=== PATIENT | male | born 1970 | race Hispanic/Latino ===

== ENCOUNTER 2024-06-21 17:43 | Emergency (ER) | payer OTHER ==
--- OUTSIDE RECORDS SUMMARY | 2024-06-21 18:13 | XMS REPORT | Continuity of Care Document ---
Author Name Unknown Address [address] [facility] [address] [place] [address] [facility] [place] Address [address] [facility] 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 Ayesha Seybold - Externa l Allergic rhinitis Allergic rhinitis Disease Active Ayesha Seybold - Externa l Nasal polyps Nasal polyps Disease Active Ayesha Seybold - Externa l Allergies, Adverse Reactions, Alerts Allergy Name Allergy Type Status Severity Reaction(s) Onset Date Inactive Date Treating Clinician Comments Source none (Not Checked) Propensi ty to adverse reaction to drug Active 07-05 00:00: 00 Jonny Helton Mesna - Intraven ous Propensi ty to adverse reaction to drug Active 7- 00:00: 00 Jonny Helton Social History Social Habit Start Date Stop Date Quantity Comments Source Sexual orientation K naya Ayon - External History of Occupation Ayesha Seybold - External Tobacco use and exposure 2024-04-01 00:00:00 2024-04-01 00:00:00 Smokeless tobacco non-user Ayesha Ayon - External Alcoholic beverage intake 2024-04-01 00:00:00 2024-04-01 00:00:00 Current drinker of alcohol (finding) Ayesha Ayon - External History of Social function 2024-04-01 00:00:00 2024-04-01 00:00:00 Ayesha Ayon - External Alcohol Comment 2024-04-01 00:00:00 2024-04-01 00:00:00 occasionally Ayesha Ayon - External Sex 2023-03-15 15:36:21 2023-03-15 15:36:21 Male (finding) Ayesha Ayon - External Sex assigned at 1970 00:00:00 1970 00:00:00 Ayesha Ayon - External Smoking Status Start Date Stop Date Source Never smoked tobacco Ayesha Ayon - External Medications Ordered Medication Name Filled Medication Name Start Date Stop Date Current Medication? Ordering Clinician Indication Dosage Frequency Signature (SIG) Comments Components Source Amoxicillin 875 MG oral Tablet 2023-04 00:00: 00 Yes [id number] 875mg Take 1 tablet (875 mg total) by mouth in the morning and 1 tablet (875 mg total) in the evening. Take with meals. Ayesha Akbar Externa l Ofloxacin 0.3 % otic Solution 2023-04 00:00: 00 Yes [id number] LOCATION: RIGHT EAR. INSTILL FOUR DROPS INTO RIGHT EAR TWICE A DAY Ayesha Ayon - Externa l atorvastati n 10 mg tablet 2023-04 00:00: 00 Yes 1mg Jonny Helton lisinopril 10 mg tablet 2023-04- 00:00: 00 Yes 1mg Jonny Helton metformin 1,000 mg tablet 2023-04 00:00: 00 Yes 1mg Jonny Helton glipizide 5 mg tablet 2023-04 00:00: 00 Yes 1mg Jonny Helton glipizide 5 mg tablet 9-16 00:00: 00 Yes 1mg Jonny Helton atorvastati n 10 mg tablet 0 12-20 00:00: 00 Yes 1mg Jonny Helton lisinopril 10 mg tablet 0 - 00:00: 00 Yes 1mg Jonny Helton glipizide 5 mg tablet 0 12-20 00:00: 00 Yes 1mg Jonny Helton metformin 1,000 mg tablet 0 - 00:00: 00 Yes 1mg Jonny Helton Lisinopril 10 MG oral Tablet 0 -12 00:00: 00 Yes [id number] 10mg QD Take 1 tablet (10 mg total) by mouth daily. Ayesha hoang lisinopril 10 mg tablet 0 10-18 00:00: 00 Yes 1mg Jonny Helton atorvastati n 10 mg tablet 09-27 00:00: 00 Yes 1mg Jonny Helton lisinopril 20 mg tablet 0 - 00:00: 00 Yes 1mg Jonny Helton glipizide 5 mg tablet 0 09-27 00:00: 00 Yes 1mg Jonny Helton metformin 1,000 mg tablet 0 - 00:00: 00 Yes 1mg Jonny Helton glipiZIDE 5 MG oral Tablet 07-05 00:00: 00 Yes [id number] 3 5mg 1 tablet (5 mg total). Ayesha hoang Atorvastati n Calcium 10 MG oral Tablet 0 07-05 00:00: 00 Yes [id number] 3 10mg QD Take 1 tablet (10 mg total) by mouth daily. Ayesha Talbert l glipizide 5 mg tablet 0 07-05 00:00: 00 Yes 1mg Jonny Helton atorvastati n 10 mg tablet 0 07-05 00:00: 00 Yes 1mg Jonny Helton metformin 1,000 mg tablet 0 07-05 00:00: 00 Yes 1mg Jonny Helton Metformin HCl 1000 MG oral Tablet 0 3-07 00:00: 00 Yes [id number] 3 1000mg QD Take 1 tablet (1,000 mg total) by mouth daily (with breakfast) . Ayesha Seyblala hoang TAKE 1 TABLET BY MOUTH DAILY 06-13 00:00: 00 Yes 5 Jonny Helton TAKE 1 TABLET BY MOUTH TWICE DAILY. 06-13 00:00: 00 Yes 1000 Jonny Helton TAKE 1 TABLET BY MOUTH DAILY 06-13 00:00: 00 Yes 20 Jonny Helton Azelastine- Fluticasone 137-50 MCG/ACT nasal Suspension 04-30 00:00: 00 Yes [id number] Ayesha Leijapedrolala Talbert l TAKE 1 TABLET BY MOUTH TWICE DAILY. 10-09 00:00: 00 07-08 00:00 :00 No 1000 Jonny Helton TAKE 1 TABLET DAILY. 10-09 00:00: 00 07-08 00:00 :00 No 5 Jonny Helton TAKE 1 TABLET DAILY. 10-09 00:00: 00 07-08 00:00 :00 No 20 Jonny Helton INSTILL 4 DROPS INTO LEFT EAR TWICE A DAY 09-25 00:00: 00 Yes Jonny Helton TWO SPRAYS EACH NOSTRIL TWICE A DAY 09-25 00:00: 00 Yes Jonny Helton OFLOXACIN 0.3%OTIC RHIANNA 07-21 00:00: 00 Yes Jonny Helton CEFDINIR 300MG 07-10 00:00: 00 Yes Jonny Helton TAKE 1 TABLET DAILY. 07-07 00:00: 00 07-08 00:00 :00 No 5 Jonny Helton TAKE 1 TABLET DAILY. 07-07 00:00: 00 07-08 00:00 :00 No 20 Jonny Helton TAKE 1 TABLET BY MOUTH TWICE DAILY. 07-07 00:00: 00 07-08 00:00 :00 No 1000 Jonny Helton AMOX/K CLAV [id number] 3-06 00:00: 00 Yes Jonny Helton TAKE 1 TABLET BY MOUTH TWICE DAILY. 2021-04 2- 00:00: 00 07-08 00:00 :00 No 1000 Jonny Helton TAKE 1 TABLET DAILY. 2021-04 2-28 00:00: 00 07-08 00:00 :00 No 20 Jonny Helton TAKE 1 TABLET DAILY. 2021-04 2-28 00:00: 00 07-08 00:00 :00 No 5 Jonny Helton Dose Unknown 0 8-08 00:00: 00 Yes Jonny Helton atorvastati n 20 mg tablet 0 7-02 00:00: 00 Yes 1mg Jonny Helton metformin ER 1,000 mg tablet,exte nded release 24hr 0 - 00:00: 00 Yes 1mg Jonny Helton Dose Unknown 0 7- 00:00: 00 Yes Jonny Helton Dose Unknown 0 - 00:00: 00 Yes Jonny Helton Dose Unknown 0 7- 00:00: 00 Yes Jonny Helton Dose Unknown 0 7-02 00:00: 00 Yes Jonny Helton Dose Unknown 0 7- 00:00: 00 Yes Jonny Helton Dose Unknown 0 5-23 00:00: 00 Yes Jonny Helton Dose Unknown 0 5-20 00:00: 00 Yes Jonny Helton metformin 500 mg tablet 0 5-18 00:00: 00 Yes 1mg Jonny Helton atorvastati n 10 mg tablet 0 5-18 00:00: 00 Yes 1mg Jonny Helton Dose Unknown 2021-0 5-18 00:00: 00 Yes Jonny Helton Dose Unknown 2021-0 5-17 00:00: 00 Yes Jonny Helton Dose Unknown 2021-0 5-14 00:00: 00 Yes Jonny Helton Dose Unknown 2021-0 5-14 00:00: 00 Yes Jonny Helton Dose Unknown 2020-0 5-22 00:00: 00 Yes Jonny Helton amoxicillin 500 mg capsule 2020-0 5-22 00:00: 00 Yes 1mg Jonny Helton Immunizations Ordered Immunization Name Filled Immunization Name Date Status Comments Source Moderna COVID-19 Vaccine Moderna COVID-19 Vaccine 2021-11-14 00:00:00 Completed Jonny Helton Moderna COVID-19 Vaccine Moderna COVID-19 Vaccine 2021-11-14 00:00:00 Completed Jonny Helton MMR MMR 2020-07-20 00:00:00 Completed Jonny Helton varicella varicella 2020-07-20 00:00:00 Completed Jonny Helton Tdap Tdap 2020-07-20 00:00:00 Completed Jonny Helton MMR MMR 2020-07-20 00:00:00 Completed Jonny Helton varicella varicella 2020-07-20 00:00:00 Completed Jonny Helton Tdap Tdap 2020-07-20 00:00:00 Completed Jonny Helton Moderna COVID-19 Vaccine Moderna COVID-19 Vaccine 2020-07-04 00:00:00 Completed Jonny Helton Moderna COVID-19 Vaccine Moderna COVID-19 Vaccine 2020-07-04 00:00:00 Completed Jonny Helton Moderna COVID-19 Vaccine Moderna COVID-19 Vaccine 2020-06-06 00:00:00 Completed Jonny Helton Moderna COVID-19 Vaccine Moderna COVID-19 Vaccine 2020-06-06 00:00:00 Completed Jonny Helton Vital Signs Vital Name Observation Time Observation Value Comments S ource Systolic blood pressure 2024-04-01 14:00:00 122 mm[Hg] Ayesha ybo ld - External Diastolic blood pressure 2024-04-01 14:00:00 68 mm[Hg] Ayesha ybo ld - External Heart rate 2024-04-01 14:00:00 80 /min Kel y Sepedroold - External Body temperature 2024-04-01 14:00:00 36.61 Ruth Ayesha Seyblala - External Respiratory rate 2024-04-01 14:00:00 16 /min Ayesha Ayon - External Body height 2024-04-01 14:00:00 180.3 cm Haley sanchez Seyblala - External Body weight 2024-04-01 14:00:00 83.519 kg Haely ey Seybold - External BMI 2024-04-01 14:00:00 25.68 kg/m2 Haley sanchez Seybold - External Oxygen saturation in Arterial blood by Pulse oximetry 2024-04-01 14:00:00 97 /min Ayesha Ramesh ld - External BP Systolic 2024-05-23 08:53:00 124 mm[Hg] Step hen F Danie BP Diastolic 2024-05-23 08:53:00 84 mm[Hg] John phen F Danie Weight Measured 2024-05-23 08:53:00 188.20 pounds Jonny F Danie Height Measured 2024-05-23 08:53:00 69.00 inches Jonny F Danie Body Temperature 2024-05-23 08:53:00 98.00 degrees Jonny F Danie Heart Rate 2024-05-23 08:53:00 76.00 /min Diane en F Danie Respiratory Rate 2024-05-23 08:53:00 18.00 /min Jonny F Danie BP Systolic 2024-03-21 08:46:00 139 mm[Hg] Step hen F Danie BP Diastolic 2024-03-21 08:46:00 82 mm[Hg] John phen F Danie Weight Measured 2024-03-21 08:46:00 183.20 pounds Jonny F Danie Height Measured 2024-03-21 08:46:00 69.00 inches Jonny F Danie Body Temperature 2024-03-21 08:46:00 98.30 degrees Jonny F Danie Heart Rate 2024-03-21 08:46:00 71.00 /min Diane en F Danie Respiratory Rate 2024-03-21 08:46:00 16.00 /min Jonny F Danie BP Systolic 2023-12-21 08:41:00 125 mm[Hg] Step hen F Danie BP Diastolic 2023-12-21 08:41:00 87 mm[Hg] John phen F Danie Weight Measured 2023-12-21 08:41:00 184.60 pounds Jonny F Danie Height Measured 2023-12-21 08:41:00 69.00 inches Jonny F Danie Body Temperature 2023-12-21 08:41:00 97.40 degrees Jonny F Danie Heart Rate 2023-12-21 08:41:00 73.00 /min Diane en F Danie Respiratory Rate 2023-12-21 08:41:00 16.00 /min Jonny F Danie BP Systolic 2023-10-19 09:40:00 143 mm[Hg] Step hen F Danie BP Diastolic 2023-10-19 09:40:00 83 mm[Hg] John phen F Danie Weight Measured 2023-10-19 09:40:00 182.40 pounds Jonny F Danie Height Measured 2023-10-19 09:40:00 69.00 inches Jonny F Danie Body Temperature 2023-10-19 09:40:00 97.90 degrees Jonny F Danie Heart Rate 2023-10-19 09:40:00 74.00 /min Diane en F Danie Respiratory Rate 2023-10-19 09:40:00 Jonny F Danie BP Systolic 2023-09-28 08:11:00 156 mm[Hg] Step hen F Danie BP Diastolic 2023-09-28 08:11:00 94 mm[Hg] John phen F Danie Weight Measured 2023-09-28 08:11:00 191.20 pounds Jonny F Danie Height Measured 2023-09-28 08:11:00 69.00 inches Jonny F Danie Body Temperature 2023-09-28 08:11:00 98.20 degrees Jonny F Danie Heart Rate 2023-09-28 08:11:00 70.00 /min Diane en F Danie Respiratory Rate 2023-09-28 08:11:00 18.00 /min Jonny F Danie BP Systolic 2023-07-06 08:20:00 147 mm[Hg] Step hen F Danie BP Diastolic 2023-07-06 08:20:00 92 mm[Hg] John phen F Danie Weight Measured 2023-07-06 08:20:00 188.80 pounds Jonny F Danie Height Measured 2023-07-06 08:20:00 69.00 inches Jonny F Danie Body Temperature 2023-07-06 08:20:00 98.20 degrees Jonny F Danie Heart Rate 2023-07-06 08:20:00 71.00 /min Diane en F Danie Respiratory Rate 2023-07-06 08:20:00 Jonny F Danie BP Systolic 2023-04-20 08:15:00 135 mm[Hg] Step hen F Danie BP Diastolic 2023-04-20 08:15:00 86 mm[Hg] John phen F Danie Weight Measured 2023-04-20 08:15:00 197.00 pounds Jonny F Danie Height Measured 2023-04-20 08:15:00 69.00 inches Jonny F Danie Body Temperature 2023-04-20 08:15:00 98.30 degrees Jonny F Danie Heart Rate 2023-04-20 08:15:00 83.00 /min Diane en F Danie Respiratory Rate 2023-04-20 08:15:00 18.00 /min Jonny F Danie BP Systolic 2023-03-16 08:13:00 136 mm[Hg] Step hen F Danie BP Diastolic 2023-03-16 08:13:00 89 mm[Hg] John phen F Danie Weight Measured 2023-03-16 08:13:00 191.60 pounds Jonny F Danie Height Measured 2023-03-16 08:13:00 69.00 inches Jonny F Danie Body Temperature 2023-03-16 08:13:00 98.20 degrees Jonny F Danie Heart Rate 2023-03-16 08:13:00 74.00 /min Diane en F Danie Respiratory Rate 2023-03-16 08:13:00 Jonny F Danie BP Systolic 2022-10-06 08:04:00 148 mm[Hg] Step hen F Danie BP Diastolic 2022-10-06 08:04:00 80 mm[Hg] John phen F Danie Weight Measured 2022-10-06 08:04:00 189.40 pounds Jonny F Danie Height Measured 2022-10-06 08:04:00 69.00 inches Jonny F Danie Body Temperature 2022-10-06 08:04:00 98.00 degrees Jonny F Danie Heart Rate 2022-10-06 08:04:00 73.00 /min Diane en F Danie Respiratory Rate 2022-10-06 08:04:00 Jonny F Danie BP Systolic 2022-07-07 11:17:00 132 mm[Hg] Step hen F Danie BP Diastolic 2022-07-07 11:17:00 83 mm[Hg] John phen F Danie Weight Measured 2022-07-07 11:17:00 187.40 pounds Jonny F Danie Height Measured 2022-07-07 11:17:00 69.00 inches Jonny F Dnaie Body Temperature 2022-07-07 11:17:00 98.70 degrees Jonny F Danie Heart Rate 2022-07-07 11:17:00 80.00 /min Diane en F Danie Respiratory Rate 2022-07-07 11:17:00 Jonny F Danie BP Systolic 2022-04-05 14:28:00 134 mm[Hg] Step hen F Danie BP Diastolic 2022-04-05 14:28:00 93 mm[Hg] John phen F Danie Weight Measured 2022-04-05 14:28:00 181.40 pounds Jonny F Danie Height Measured 2022-04-05 14:28:00 69.00 inches Jonny F Danie Body Temperature 2022-04-05 14:28:00 98.30 degrees Jonny F Danie Heart Rate 2022-04-05 14:28:00 84.00 /min Diane en F Danie Respiratory Rate 2022-04-05 14:28:00 18.00 /min Jonny F Danie BP Systolic 2022-01-09 10:22:00 142 mm[Hg] Step hen F Danie BP Diastolic 2022-01-09 10:22:00 89 mm[Hg] John phen F Danie Weight Measured 2022-01-09 10:22:00 179.40 pounds Jonny F Danie Height Measured 2022-01-09 10:22:00 69.00 inches Jonny F Danie Body Temperature 2022-01-09 10:22:00 98.60 degrees Jonny F Danie Heart Rate 2022-01-09 10:22:00 82.00 /min Diane en F Danie Respiratory Rate 2022-01-09 10:22:00 18.00 /min Jonny F Danie BP Systolic 2021-10-08 09:43:00 121 mm[Hg] Step hen F Danie BP Diastolic 2021-10-08 09:43:00 85 mm[Hg] John phen F Danie Weight Measured 2021-10-08 09:43:00 179.20 pounds Jonny F Danie Height Measured 2021-10-08 09:43:00 69.00 inches Jonny F Danie Body Temperature 2021-10-08 09:43:00 98.40 degrees Jonny F Danie Heart Rate 2021-10-08 09:43:00 78.00 /min Diane en F Danie Respiratory Rate 2021-10-08 09:43:00 Jonny F Danie BP Systolic 2021-08-20 09:11:00 121 mm[Hg] Step hen F Danie BP Diastolic 2021-08-20 09:11:00 82 mm[Hg] John Helton Weight Measured 2021-08-20 09:11:00 181.20 pounds Jonny Helton Height Measured 2021-08-20 09:11:00 69.00 inches Jonny Helton Body Temperature 2021-08-20 09:11:00 98.40 degrees Jonny Helton Heart Rate 2021-08-20 09:11:00 84.00 /min Diane Helton Respiratory Rate 2021-08-20 09:11:00 20.00 /min Jonny Helton Encounters Start Date/Time End Date/Time Encounter Type Admission Type Attending [facility] Care Department Encounter ID Source 2024-07-18 10:45:00 2024-07-18 10:45:00 Outpatient MAI LERMA [id number] Ayesha Ayon 2024-05-23 00:00:00 2024-05-23 00:00:00 Outpatient Visit [facility] [id number] Jonny Helton 2024-05-09 00:00:00 2024-05-09 00:00:00 Outpatient AYESHA MERAZ [id number] Ayesha lala 2024-05-02 00:00:00 2024-05-02 00:00:00 Outpatient AYESHA MERAZ [id number] Ayesha lala 2024-04-01 08:00:00 2024-04-01 08:00:00 Outpatient [facility] LER[facility] [id number] [facility]-01 00:00:00 2024-04-01 00:00:00 Outpatient AYESHA MERAZ [id number] Ayesha Gabo 2024-03-21 08:48:34 2024-03-21 08:48:34 Outpatient SFA SFA [id number] Jonny Helton 2024-03-21 00:00:00 2024-03-21 00:00:00 Outpatient Visit S[facility] [id number] Jonny Helton 2024-01-04 13:57:58 2024-01-04 13:57:58 Outpatient SFA SFA [id number] Jonny Helton 2023-12-21 08:31:18 2023-12-21 08:31:18 Outpatient SFA SFA [id number] Jonny Helton 2023-12-21 00:00:00 2023-12-21 00:00:00 Outpatient Visit SFA [id number] Jonny Helton 2023-10-19 09:30:29 2023-10-19 09:30:29 Outpatient SFA SFA [id number] Jonny Helton 2023-10-19 00:00:00 2023-10-19 00:00:00 Outpatient Visit SFA [id number] Jonny Helton 2023-09-28 08:09:02 2023-09-28 08:09:02 Outpatient SFA SFA [id number] Jonny Helton 2023-09-28 00:00:00 2023-09-28 00:00:00 Outpatient Visit SFA [id number] Jonny Helton 2023-07-06 08:15:18 2023-07-06 08:15:18 Outpatient SFA SFA [id number] Jonny Helton 2023-04-20 07:57:41 2023-04-20 07:57:41 Outpatient SFA SFA [id number] Jonny Helton 2023-03-16 07:59:48 2023-03-16 07:59:48 Outpatient SFA SFA [id number] Jonny Helton 2022-10-12 08:00:04 2022-10-12 08:00:04 Outpatient SFA SFA [id number] Jonny Helton 2022-10-06 07:50:24 2022-10-06 07:50:24 Outpatient SFA SFA [id number] Jonny Helton 2022-07-07 11:05:30 2022-07-07 11:05:30 Outpatient [facility] [id number] Jonny Helton 2022-04-05 14:22:37 2022-04-05 14:22:37 Outpatient [facility] [id number] Jonny Helton Results Test Description Test Time Test Comments Results Result Co mments Source HEMOGLOBIN [id number] 00:00:00* Test Item Value Reference Range Interpretation Comme merry HEMOGLOBIN A1c (test code = 93677) 7.9 % Jonny HeltonHEMOGLOBIN [id number] 05:11:24* Test Item Value Reference Range Interpretation Comme merry HEMOGLOBIN A1c (test code = 53710) 7.1 % 4.2-5.6 H [employer] GUIDELINES FOR HGB A1C: PREDIABETES/INCREASED RISK . . . . . . . 5.7-6.4% DIAGNOSIS OF DIABETES . . . . . . . . . >=6.5% WITH CONFIRMATION OR APPROPRIATE SYMPTOMS NOTE: ASSAY MAY BE AFFECTED BY HEMOGLOBINOPATHIES (SICKLE CELL ANEMIA, S-C DISEASE, OTHERS) OR ARTIFICIALLY LOWERED BY DECREASED RED CELL SURVIVAL (HEMOLYTIC ANEMIAS, BLOOD LOSS, ETC.). CONSIDER ALTERNATE TESTING OR LABORATORY CONSULTATION. UNLESS OTHERWISE INDICATED, ALL TESTING PERFORMED AT [facility] [address] [place] [address] SOLAR THERMAL INSTALLER: NAIDA VELARDE M.D. CLIA NUMBER [id number] [facility] [place]. [id number] HEMOGLOBIN [id number] 00:00:00* Test Item Value Reference Range Interpretation Comme merry HEMOGLOBIN A1c (test code = 55223) 7.1 % Jonny HeltonHEMOGLOBIN [id number] 00:00:00* Test Item Value Reference Range Interpretation Comme merry HEMOGLOBIN A1c (test code = 54742) 7.1 % Jonny Rust AustinOccult Blood, Fecal, [id number] 00:00:00* Test Item Value Reference Range Interpretation Comme nts Occult Blood, Fecal, [place] (andrea t code = 89815-8) Negative Jonny Rust AustinOccult Blood, Fecal, [id number] 00:00:00* Test Item Value Reference Range Interpretation Comme nts Occult Blood, Fecal, IA (andrea t code = 82451-3) Negative Jonny F AustinHEMOGLOBIN [id number] 04:02:19* Test Item Value Reference Range Interpretation Comme [facility] HEMOGLOBIN A1c (test code = 69289) 7.5 % 4.2-5.6 H [employer] GUIDELINES FOR HGB A1C: PREDIABETES/INCREASED RISK . . . . . . . 5.7-6.4% DIAGNOSIS OF DIABETES . . . . . . . . . >=6.5% WITH CONFIRMATION OR APPROPRIATE SYMPTOMS NOTE: ASSAY MAY BE AFFECTED BY HEMOGLOBINOPATHIES (SICKLE CELL ANEMIA, S-C DISEASE, OTHERS) OR ARTIFICIALLY LOWERED BY DECREASED RED CELL SURVIVAL (HEMOLYTIC ANEMIAS, BLOOD LOSS, ETC.). CONSIDER ALTERNATE TESTING OR LABORATORY CONSULTATION. LIPID [id number] 03:10:12* Test Item Value Reference Range Interpretation Comme nts CHOLESTEROL (test code = 2210) 168 MG/DL <200 TRIGLYCERIDES (test code = 2232) 83 MG/DL <150 HDL CHOLESTEROL (test code = 2220) 76 MG/DL >39 CALC LDL CHOL (test code = 2237) 75 MG/DL <100 NOTE: CALCULATED LDL IS BASED ON MARC-LARSON METHOD WHICHINCLUDES ADJUSTABLE TRIGLYCERIDE:VLDL CHOLESTEROL RATIO.THIS FACTOR VARIES BY MEASURED TRIGLYCERIDE AND NON-HDLCHOLESTEROL CONCENTRATIONS WITH INCREASED CALCULATED LDL SEENIN HIGHER TRIGLYCERIDE OR LOWER NON-HDL SPECIMENS. FOR MOREINFORMATION, SEE CLIENT ANNOUNCEMENT AT [email or web address] RISK RATIO LDL/HDL (test code = 2238) 0.99 RATIO <3.55 COMPREHENSIVE METABOLIC [id number] 03:10:12* Test Item Value Reference Range Interpretation Comme nts GLUCOSE (test code = 2217) 171 MG/DL 70-99 H BUN (test code = 2208) 10 MG/DL 6-20 CREATININE (test code = 2214) 0.84 MG/DL 0.80-1.40 eGFR (2020 CKD-EPI) (test code = 76864) 104 ML/MIN/1.73 >60 CALC BUN/CREAT (test code = 2235) 12 RATIO 6-28 SODIUM (test code = 2231) 138 MEQ/L 133-146 POTASSIUM (test code = 2228) 4.7 MEQ/L 3.5-5.4 CHLORIDE (test code = 2215) 102 MEQ/L 95-107 CARBON DIOXIDE (test code = 2206) 23 MEQ/L 19-31 CALCIUM (test code = 2209) 9.4 MG/DL 8.5-10.5 PROTEIN, TOTAL (test code = 2229) 7.2 G/DL 6.1-8.3 ALBUMIN (test code = 2201) 4.7 G/DL 3.5-5.2 CALC GLOBULIN (test code = 2240) 2.5 G/DL 1.9-3.7 CALC A/G RATIO (test code = 2234) 1.9 RATIO 1.0-2.6 BILIRUBIN, TOTAL (test code = 2207) 1.0 MG/DL <=1.2 ALKALINE PHOSPHATASE (test code = 2204) 52 U/L 40-121 AST (test code = 2218) 36 U/L 9-50 ALT (test code = 2219) 78 U/L 5-50 H UNLESS OTHERWISE INDICATED, ALL TESTING PERFORMED AT [facility] [address] [place] [id number] SOLAR THERMAL INSTALLER: NAIDA VELARDE M.D. [place] NUMBER [id number] [facility] [place]. [id number] LIPID [id number] 00:00:00* Test Item Value Reference Range Interpretation Comme nts CHOLESTEROL (test code = 2210) 168 MG/DL TRIGLYCERIDES (test code = 2232) 83 MG/DL HDL CHOLESTEROL (test code = 2220) 76 MG/DL CALC LDL CHOL (test code = 2237) 75 MG/DL RISK RATIO LDL/HDL (test cod e = 2238) 0.99 RATIO Jonny Yocasta DanieHEMOGLOBIN [id number] 00:00:00* Test Item Value Reference Range Interpretation Comme nts HEMOGLOBIN A1c (test code = 52761) 7.5 % Jonny [place]asta [place] [id number] 00:00:00* Test Item Value Reference Range Interpretation Comme nts GLUCOSE (test code = 2217) 171 MG/DL BUN (test code = 2208) 10 MG/DL CREATININE (test code = 2214) 0.84 MG/DL eGFR (2020 CKD-EPI) (test code = 59749) 104 ML/MIN/1.73 CALC BUN/CREAT (test code = 2235) 12 RATIO SODIUM (test code = 2231) 138 MEQ/L POTASSIUM (test code = 2228) 4.7 MEQ/L CHLORIDE (test code = 2215) 102 MEQ/L CARBON DIOXIDE (test code = 2206) 23 MEQ/L CALCIUM (test code = 2209) 9.4 MG/DL PROTEIN, TOTAL (test code = 2229) 7.2 G/DL ALBUMIN (test code = 2201) 4.7 G/DL CALC GLOBULIN (test code = 2240) 2.5 G/DL CALC A/G RATIO (test code = 2234) 1.9 RATIO BILIRUBIN, TOTAL (test code = 2207) 1.0 MG/DL ALKALINE PHOSPHATASE (test code = 2204) 52 U/L AST (test code = 2218) 36 U/L ALT (test code = 2219) 78 U/L Jonny HeltonLIPID [id number] 00:00:00* Test Item Value Reference Range Interpretation Comme nts CHOLESTEROL (test code = 2210) 168 MG/DL TRIGLYCERIDES (test code = 2232) 83 MG/DL HDL CHOLESTEROL (test code = 2220) 76 MG/DL CALC LDL CHOL (test code = 2237) 75 MG/DL RISK RATIO LDL/HDL (test cod e = 2238) 0.99 RATIO Jonny HeltonHEMOGLOBIN [id number] 00:00:00* Test Item Value Reference Range Interpretation Comme nts HEMOGLOBIN A1c (test code = 58207) 7.5 % Jonny HeltonCOMPREHENSIVE METABOLIC [id number] 00:00:00* Test Item Value Reference Range Interpretation Comme nts GLUCOSE (test code = 2217) 171 MG/DL BUN (test code = 2208) 10 MG/DL CREATININE (test code = 2214) 0.84 MG/DL eGFR (2020 CKD-EPI) (test code = 32737) 104 ML/MIN/1.73 CALC BUN/CREAT (test code = 2235) 12 RATIO SODIUM (test code = 2231) 138 MEQ/L POTASSIUM (test code = 2228) 4.7 MEQ/L CHLORIDE (test code = 2215) 102 MEQ/L CARBON DIOXIDE (test code = 2206) 23 MEQ/L CALCIUM (test code = 2209) 9.4 MG/DL PROTEIN, TOTAL (test code = 2229) 7.2 G/DL ALBUMIN (test code = 2201) 4.7 G/DL CALC GLOBULIN (test code = 2240) 2.5 G/DL CALC A/G RATIO (test code = 2233) 1.9 RATIO BILIRUBIN, TOTAL (test code = 2207) 1.0 MG/DL ALKALINE PHOSPHATASE (test code = 2204) 52 U/L AST (test code = 2218) 36 U/L ALT (test code = 2219) 78 U/L Jonny HeltonALBUMIN/CREATININE RATIO, URINE, [id number] 04:16:36* Test Item Value Reference Range Interpretation Comme nts CREATININE, URINE, CONC. (test code = 2072) 93.0 MG/DL NOT ESTAB ALBUMIN, URINE, RANDOM (test code = 20349) 4.2 MG/DL NOT ESTAB CALC ALBUMIN/CREAT, RND (test code = 24079) 45 MG/G <30 H Note: Albumin/Cr eatinine ratio reference interval reflects ADA and NKF guidelines. UNLESS OTHERWISE INDICATED, ALL TESTING PERFORMED AT [facility] [address] [place] [address] SOLAR THERMAL INSTALLER: NAIDA VELARDE M.D. CLIA NUMBER [id number] [facility] [place] [place]. [id number] LIPID [id number] 03:31:47* Test Item Value Reference Range Interpretation Comme nts CHOLESTEROL (test code = 2210) 160 MG/DL <200 TRIGLYCERIDES (test code = 2232) 68 MG/DL <150 HDL CHOLESTEROL (test code = 2220) 68 MG/DL >39 CALC LDL CHOL (test code = 7) 78 MG/DL <100 NOTE: CALCULATED LDL IS BASED ON MARC-LARSON METHOD WHICHINCLUDES ADJUSTABLE TRIGLYCERIDE:VLDL CHOLESTEROL RATIO.THIS FACTOR VARIES BY MEASURED TRIGLYCERIDE AND NON-HDLCHOLESTEROL CONCENTRATIONS WITH INCREASED CALCULATED LDL SEENIN HIGHER TRIGLYCERIDE OR LOWER NON-HDL SPECIMENS. FOR MOREINFORMATION, SEE CLIENT ANNOUNCEMENT AT [email or web address] RISK RATIO LDL/HDL (test code = 2238) 1.15 RATIO <3.55 COMPREHENSIVE METABOLIC [id number] 03:31:47* Test Item Value Reference Range Interpretation Comme nts GLUCOSE (test code = 2216) 188 MG/DL 70-99 H BUN (test code = 2207) 11 MG/DL 6-20 CREATININE (test code = 2213) 0.86 MG/DL 0.80-1.40 eGFR (2020 CKD-EPI) (test code = 69606) 104 ML/MIN/1.73 >60 CALC BUN/CREAT (test code = 2234) 13 RATIO 6-28 SODIUM (test code = 2230) 139 MEQ/L 133-146 POTASSIUM (test code = 2227) 4.4 MEQ/L 3.5-5.4 CHLORIDE (test code = 2214) 100 MEQ/L 95-107 CARBON DIOXIDE (test code = 2205) 27 MEQ/L 19-31 CALCIUM (test code = 2208) 9.8 MG/DL 8.5-10.5 PROTEIN, TOTAL (test code = 2228) 7.2 G/DL 6.1-8.3 ALBUMIN (test code = 2200) 4.8 G/DL 3.5-5.2 CALC GLOBULIN (test code = 2239) 2.4 G/DL 1.9-3.7 CALC A/G RATIO (test code = 2233) 2.0 RATIO 1.0-2.6 BILIRUBIN, TOTAL (test code = 2206) 0.9 MG/DL <=1.2 ALKALINE PHOSPHATASE (test code = 2203) 68 U/L 40-121 AST (test code = 2217) 34 U/L 9-50 ALT (test code = 2218) 50 U/L 5-50 HEMOGLOBIN [id number] 02:28:30* Test Item Value Reference Range Interpretation Comme nts HEMOGLOBIN A1c (test code = 26533) 6.9 % 4.2-5.6 H [employer] GUIDELINES FOR HGB A1C: PREDIABETES/INCREASED RISK . . . . . . . 5.7-6.4% DIAGNOSIS OF DIABETES . . . . . . . . . >=6.5% WITH CONFIRMATION OR APPROPRIATE SYMPTOMS NOTE: ASSAY MAY BE AFFECTED BY HEMOGLOBINOPATHIES (SICKLE CELL ANEMIA, S-C DISEASE, OTHERS) OR ARTIFICIALLY LOWERED BY DECREASED RED CELL SURVIVAL (HEMOLYTIC ANEMIAS, BLOOD LOSS, ETC.). CONSIDER ALTERNATE TESTING OR LABORATORY CONSULTATION. HEMOGLOBIN [id number] 00:00:00* Test Item Value Reference Range Interpretation Comme nts HEMOGLOBIN A1c (test code = 22548) 6.9 % Jonny Yocasta AustinLIPID [id number] 00:00:00* Test Item Value Reference Range Interpretation Comme nts CHOLESTEROL (test code = 2210) 160 MG/DL TRIGLYCERIDES (test code = 2232) 68 MG/DL HDL CHOLESTEROL (test code = 2220) 68 MG/DL CALC LDL CHOL (test code = 2237) 78 MG/DL RISK RATIO LDL/HDL (test cod e = 2238) 1.15 RATIO Jonny HeltonCOMPREHENSIVE METABOLIC [id number] 00:00:00* Test Item Value Reference Range Interpretation Comme nts GLUCOSE (test code = 2217) 188 MG/DL BUN (test code = 2208) 11 MG/DL CREATININE (test code = 2214) 0.86 MG/DL eGFR (2020 CKD-EPI) (test code = 97586) 104 ML/MIN/1.73 CALC BUN/CREAT (test code = 2235) 13 RATIO SODIUM (test code = 2231) 139 MEQ/L POTASSIUM (test code = 2228) 4.4 MEQ/L CHLORIDE (test code = 2215) 100 MEQ/L CARBON DIOXIDE (test code = 2206) 27 MEQ/L CALCIUM (test code = 2209) 9.8 MG/DL PROTEIN, TOTAL (test code = 2229) 7.2 G/DL ALBUMIN (test code = 2201) 4.8 G/DL CALC GLOBULIN (test code = 2240) 2.4 G/DL CALC A/G RATIO (test code = 2234) 2.0 RATIO BILIRUBIN, TOTAL (test code = 2207) 0.9 MG/DL ALKALINE PHOSPHATASE (test code = 2204) 68 U/L AST (test code = 2218) 34 U/L ALT (test code = 2219) 50 U/L Jonny HeltonALBUMIN/CREATININE RATIO, RANDOM [id number] 00:00:00* Test Item Value Reference Range Interpretation Comme nts CREATININE, URINE, CONC. (te st code = 2072) 93.0 MG/DL ALBUMIN, URINE, RANDOM (test code = 00695) 4.2 MG/DL CALC ALBUMIN/CREAT, RND (andrea t code = 61289) 45 MG/G Jonny HeltonHEMOGLOBIN [id number] 00:00:00* Test Item Value Reference Range Interpretation Comme merry HEMOGLOBIN A1c (test code = 33009) 6.9 % Jonny F AustinLIPID [id number] 00:00:00* Test Item Value Reference Range Interpretation Comme nts CHOLESTEROL (test code = 2210) 160 MG/DL TRIGLYCERIDES (test code = 2232) 68 MG/DL HDL CHOLESTEROL (test code = 2220) 68 MG/DL CALC LDL CHOL (test code = 2237) 78 MG/DL RISK RATIO LDL/HDL (test cod e = 2238) 1.15 RATIO Jonny HeltonCOMPREHENSIVE METABOLIC [id number] 00:00:00* Test Item Value Reference Range Interpretation Comme nts GLUCOSE (test code = 2217) 188 MG/DL BUN (test code = 2208) 11 MG/DL CREATININE (test code = 2214) 0.86 MG/DL eGFR (2020 CKD-EPI) (test code = 70692) 104 ML/MIN/1.73 CALC BUN/CREAT (test code = 2235) 13 RATIO SODIUM (test code = 2231) 139 MEQ/L POTASSIUM (test code = 2228) 4.4 MEQ/L CHLORIDE (test code = 2215) 100 MEQ/L CARBON DIOXIDE (test code = 2206) 27 MEQ/L CALCIUM (test code = 2209) 9.8 MG/DL PROTEIN, TOTAL (test code = 2229) 7.2 G/DL ALBUMIN (test code = 2201) 4.8 G/DL CALC GLOBULIN (test code = 2240) 2.4 G/DL CALC A/G RATIO (test code = 2234) 2.0 RATIO BILIRUBIN, TOTAL (test code = 2207) 0.9 MG/DL ALKALINE PHOSPHATASE (test code = 2204) 68 U/L AST (test code = 2218) 34 U/L ALT (test code = 2219) 50 U/L Jonny HeltonALBUMIN/CREATININE RATIO, RANDOM [id number] 00:00:00* Test Item Value Reference Range Interpretation Comme nts CREATININE, URINE, CONC. (te st code = 2072) 93.0 MG/DL ALBUMIN, URINE, RANDOM (test code = 03222) 4.2 MG/DL CALC ALBUMIN/CREAT, RND (andrea t code = 17644) 45 MG/G Jonny HeltonHEMOGLOBIN [id number] 00:00:00* Test Item Value Reference Range Interpretation Comme nts HEMOGLOBIN A1c (test code = 31726) 6.9 % Jonny HeltonLIPID [id number] 00:00:00* Test Item Value Reference Range Interpretation Comme nts CHOLESTEROL (test code = 2210) 160 MG/DL TRIGLYCERIDES (test code = 2232) 68 MG/DL HDL CHOLESTEROL (test code = 2220) 68 MG/DL CALC LDL CHOL (test code = 2237) 78 MG/DL RISK RATIO LDL/HDL (test cod e = 2238) 1.15 RATIO Jonny HeltonCOMPREHENSIVE METABOLIC [id number] 00:00:00* Test Item Value Reference Range Interpretation Comme nts GLUCOSE (test code = 2217) 188 MG/DL BUN (test code = 2208) 11 MG/DL CREATININE (test code = 2214) 0.86 MG/DL eGFR (2020 CKD-EPI) (test code = 73680) 104 ML/MIN/1.73 CALC BUN/CREAT (test code = 2235) 13 RATIO SODIUM (test code = 2231) 139 MEQ/L POTASSIUM (test code = 2228) 4.4 MEQ/L CHLORIDE (test code = 2215) 100 MEQ/L CARBON DIOXIDE (test code = 2206) 27 MEQ/L CALCIUM (test code = 2209) 9.8 MG/DL PROTEIN, TOTAL (test code = 2229) 7.2 G/DL ALBUMIN (test code = 2201) 4.8 G/DL CALC GLOBULIN (test code = 2240) 2.4 G/DL CALC A/G RATIO (test code = 2234) 2.0 RATIO BILIRUBIN, TOTAL (test code = 2207) 0.9 MG/DL ALKALINE PHOSPHATASE (test code = 2204) 68 U/L AST (test code = 2218) 34 U/L ALT (test code = 2219) 50 U/L Jonny Rust AustinALBUMIN/CREATININE RATIO, RANDOM [id number] 00:00:00* Test Item Value Reference Range Interpretation Comme nts CREATININE, URINE, CONC. (te st code = 2072) 93.0 MG/DL ALBUMIN, URINE, RANDOM (test code = 67617) 4.2 MG/DL CALC ALBUMIN/CREAT, RND (andrea t code = 37152) 45 MG/G Jonny HeltonHEMOGLOBIN [id number] 00:00:00* Test Item Value Reference Range Interpretation Comme merry HEMOGLOBIN A1c (test code = 51522) 6.9 % Jonny HeltonLIPID [id number] 00:00:00* Test Item Value Reference Range Interpretation Comme nts CHOLESTEROL (test code = 2210) 160 MG/DL TRIGLYCERIDES (test code = 2232) 68 MG/DL HDL CHOLESTEROL (test code = 2220) 68 MG/DL CALC LDL CHOL (test code = 2237) 78 MG/DL RISK RATIO LDL/HDL (test cod e = 2238) 1.15 RATIO Jonny HeltonCOMPREHENSIVE METABOLIC [id number] 00:00:00* Test Item Value Reference Range Interpretation Comme nts GLUCOSE (test code = 2217) 188 MG/DL BUN (test code = 2208) 11 MG/DL CREATININE (test code = 2214) 0.86 MG/DL eGFR (2020 CKD-EPI) (test code = 18788) 104 ML/MIN/1.73 CALC BUN/CREAT (test code = 2235) 13 RATIO SODIUM (test code = 2231) 139 MEQ/L POTASSIUM (test code = 2228) 4.4 MEQ/L CHLORIDE (test code = 2215) 100 MEQ/L CARBON DIOXIDE (test code = 2206) 27 MEQ/L CALCIUM (test code = 2209) 9.8 MG/DL PROTEIN, TOTAL (test code = 2229) 7.2 G/DL ALBUMIN (test code = 2201) 4.8 G/DL CALC GLOBULIN (test code = 2240) 2.4 G/DL CALC A/G RATIO (test code = 2234) 2.0 RATIO BILIRUBIN, TOTAL (test code = 2207) 0.9 MG/DL ALKALINE PHOSPHATASE (test code = 2204) 68 U/L AST (test code = 2218) 34 U/L ALT (test code = 2219) 50 U/L Jonny HeltonALBUMIN/CREATININE RATIO, RANDOM [id number] 00:00:00* Test Item Value Reference Range Interpretation Comme merry CREATININE, URINE, CONC. (te st code = 2072) 93.0 MG/DL ALBUMIN, URINE, RANDOM (test code = 02038) 4.2 MG/DL CALC ALBUMIN/CREAT, RND (andrea t code = 03410) 45 MG/G Jonny HeltonHEMOGLOBIN [id number] 00:00:00* Test Item Value Reference Range Interpretation Comme merry HEMOGLOBIN A1c (test code = 50354) 6.9 % Jonny HeltonLIPID [id number] 00:00:00* Test Item Value Reference Range Interpretation Comme nts CHOLESTEROL (test code = 2210) 160 MG/DL TRIGLYCERIDES (test code = 2232) 68 MG/DL HDL CHOLESTEROL (test code = 2220) 68 MG/DL CALC LDL CHOL (test code = 2237) 78 MG/DL RISK RATIO LDL/HDL (test cod e = 2238) 1.15 RATIO Jonny HeltonCOMPREHENSIVE METABOLIC [id number] 00:00:00* Test Item Value Reference Range Interpretation Comme nts GLUCOSE (test code = 2217) 188 MG/DL BUN (test code = 2208) 11 MG/DL CREATININE (test code = 2214) 0.86 MG/DL eGFR (2020 CKD-EPI) (test code = 34286) 104 ML/MIN/1.73 CALC BUN/CREAT (test code = 2235) 13 RATIO SODIUM (test code = 2231) 139 MEQ/L POTASSIUM (test code = 2228) 4.4 MEQ/L CHLORIDE (test code = 2215) 100 MEQ/L CARBON DIOXIDE (test code = 2206) 27 MEQ/L CALCIUM (test code = 2209) 9.8 MG/DL PROTEIN, TOTAL (test code = 2229) 7.2 G/DL ALBUMIN (test code = 2201) 4.8 G/DL CALC GLOBULIN (test code = 2240) 2.4 G/DL CALC A/G RATIO (test code = 2234) 2.0 RATIO BILIRUBIN, TOTAL (test code = 2207) 0.9 MG/DL ALKALINE PHOSPHATASE (test code = 2204) 68 U/L AST (test code = 2218) 34 U/L ALT (test code = 2219) 50 U/L Jonny HeltonALBUMIN/CREATININE RATIO, RANDOM [id number] 00:00:00* Test Item Value Reference Range Interpretation Comme nts CREATININE, URINE, CONC. (te st code = 2072) 93.0 MG/DL ALBUMIN, URINE, RANDOM (test code = 31262) 4.2 MG/DL CALC ALBUMIN/CREAT, RND (andrea t code = 69488) 45 MG/G Jonny Rust AustinLIPID [id number] 04:36:59* Test Item Value Reference Range Interpretation Comme nts CHOLESTEROL (test code = 2210) 201 MG/DL <200 H TRIGLYCERIDES (test code = 2232) 90 MG/DL <150 HDL CHOLESTEROL (test code = 2220) 67 MG/DL >39 CALC LDL CHOL (test code = 2237) 115 MG/DL <100 H NOTE: CALCULATED LDL IS BASED ON MARC-LARSON METHOD WHICHINCLUDES ADJUSTABLE TRIGLYCERIDE:VLDL CHOLESTEROL RATIO.THIS FACTOR VARIES BY MEASURED TRIGLYCERIDE AND NON-HDLCHOLESTEROL CONCENTRATIONS WITH INCREASED CALCULATED LDL SEENIN HIGHER TRIGLYCERIDE OR LOWER NON-HDL SPECIMENS. FOR MOREINFORMATION, SEE CLIENT ANNOUNCEMENT AT [email or web address] RISK RATIO LDL/HDL (test code = 2238) 1.72 RATIO <3.55 COMPREHENSIVE METABOLIC [id number] 04:36:59* Test Item Value Reference Range Interpretation Comme nts GLUCOSE (test code = 2217) 178 MG/DL 70-99 H BUN (test code = 8) 10 MG/DL 6-20 CREATININE (test code = 2214) 0.79 MG/DL 0.80-1.40 L eGFR (2020 CKD-EPI) (test code = 92867) 106 ML/MIN/1.73 >60 CALC BUN/CREAT (test code = 2235) 13 RATIO 6-28 SODIUM (test code = 223) 139 MEQ/L 133-146 POTASSIUM (test code = 2228) 4.7 MEQ/L 3.5-5.4 CHLORIDE (test code = 2215) 102 MEQ/L 95-107 CARBON DIOXIDE (test code = 2206) 24 MEQ/L 19-31 CALCIUM (test code = 2209) 9.4 MG/DL 8.5-10.5 PROTEIN, TOTAL (test code = 222) 6.9 G/DL 6.1-8.3 ALBUMIN (test code = 2201) 4.4 G/DL 3.5-5.2 CALC GLOBULIN (test code = 2240) 2.5 G/DL 1.9-3.7 CALC A/G RATIO (test code = 2234) 1.8 RATIO 1.0-2.6 BILIRUBIN, TOTAL (test code = 2207) 0.9 MG/DL <=1.2 ALKALINE PHOSPHATASE (test code = 2204) 65 U/L 40-121 AST (test code = 2218) 27 U/L 9-50 ALT (test code = 2219) 34 U/L 5-50 UNLESS OTHERWISE INDICATED, ALL TESTING PERFORMED AT [facility] [address] [place] [id number] SOLAR [employer]ERM[employer] INSTALLER: NAIDA VELARDE M.D. IA NUMBER [id number] [facility] [place] [place]. [id number] HEMOGLOBIN [id number] 02:34:06* Test Item Value Reference Range Interpretation Comme nts HEMOGLOBIN A1c (test code = 47033) 6.8 % 4.2-5.6 H [employer] GUIDELINES FOR HGB A1C: PREDIABETES/INCREASED RISK . . . . . . . 5.7-6.4% DIAGNOSIS OF DIABETES . . . . . . . . . >=6.5% WITH CONFIRMATION OR APPROPRIATE SYMPTOMS NOTE: ASSAY MAY BE AFFECTED BY HEMOGLOBINOPATHIES (SICKLE CELL ANEMIA, S-C DISEASE, OTHERS) OR ARTIFICIALLY LOWERED BY DECREASED RED CELL SURVIVAL (HEMOLYTIC ANEMIAS, BLOOD LOSS, ETC.). CONSIDER ALTERNATE TESTING OR LABORATORY CONSULTATION. HEMOGLOBIN [id number] 00:00:00* Test Item Value Reference Range Interpretation Comme nts HEMOGLOBIN A1c (test code = 91879) 6.8 % Jonny HeltonLIPID [id number] 00:00:00* Test Item Value Reference Range Interpretation Comme nts CHOLESTEROL (test code = 2210) 201 MG/DL TRIGLYCERIDES (test code = 2232) 90 MG/DL HDL CHOLESTEROL (test code = 2220) 67 MG/DL CALC LDL CHOL (test code = 2237) 115 MG/DL RISK RATIO LDL/HDL (test cod e = 2238) 1.72 RATIO Jonny HetlonCOMPREHENSIVE METABOLIC [id number] 00:00:00* Test Item Value Reference Range Interpretation Comme nts GLUCOSE (test code = 2217) 178 MG/DL BUN (test code = 2208) 10 MG/DL CREATININE (test code = 2214) 0.79 MG/DL eGFR (2020 CKD-EPI) (test code = 25054) 106 ML/MIN/1.73 CALC BUN/CREAT (test code = 2235) 13 RATIO SODIUM (test code = 2231) 139 MEQ/L POTASSIUM (test code = 2228) 4.7 MEQ/L CHLORIDE (test code = 2215) 102 MEQ/L CARBON DIOXIDE (test code = 2206) 24 MEQ/L CALCIUM (test code = 2209) 9.4 MG/DL PROTEIN, TOTAL (test code = 2229) 6.9 G/DL ALBUMIN (test code = 2201) 4.4 G/DL CALC GLOBULIN (test code = 2240) 2.5 G/DL CALC A/G RATIO (test code = 2234) 1.8 RATIO BILIRUBIN, TOTAL (test code = 2207) 0.9 MG/DL ALKALINE PHOSPHATASE (test code = 2204) 65 U/L AST (test code = 2218) 27 U/L ALT (test code = 2219) 34 U/L oJnny HeltonHEMOGLOBIN [id number] 00:00:00* Test Item Value Reference Range Interpretation Comme nts HEMOGLOBIN A1c (test code = 42965) 6.8 % Jonny HeltonLIPID [id number] 00:00:00* Test Item Value Reference Range Interpretation Comme nts CHOLESTEROL (test code = 2210) 201 MG/DL TRIGLYCERIDES (test code = 2232) 90 MG/DL HDL CHOLESTEROL (test code = 2220) 67 MG/DL CALC LDL CHOL (test code = 2237) 115 MG/DL RISK RATIO LDL/HDL (test cod e = 2238) 1.72 RATIO Jonny HeltonCOMPREHENSIVE METABOLIC [id number] 00:00:00* Test Item Value Reference Range Interpretation Comme nts GLUCOSE (test code = 2217) 178 MG/DL BUN (test code = 2208) 10 MG/DL CREATININE (test code = 2214) 0.79 MG/DL eGFR (2020 CKD-EPI) (test code = 38597) 106 ML/MIN/1.73 CALC BUN/CREAT (test code = 2235) 13 RATIO SODIUM (test code = 2231) 139 MEQ/L POTASSIUM (test code = 2228) 4.7 MEQ/L CHLORIDE (test code = 2215) 102 MEQ/L CARBON DIOXIDE (test code = 2206) 24 MEQ/L CALCIUM (test code = 2209) 9.4 MG/DL PROTEIN, TOTAL (test code = 2229) 6.9 G/DL ALBUMIN (test code = 2201) 4.4 G/DL CALC GLOBULIN (test code = 2240) 2.5 G/DL CALC A/G RATIO (test code = 2234) 1.8 RATIO BILIRUBIN, TOTAL (test code = 2207) 0.9 MG/DL ALKALINE PHOSPHATASE (test code = 2204) 65 U/L AST (test code = 2218) 27 U/L ALT (test code = 2219) 34 U/L Jonny HeltonHEMOGLOBIN [id number] 00:00:00* Test Item Value Reference Range Interpretation Comme merry HEMOGLOBIN A1c (test code = 47018) 6.8 % Jonny HeltonLIPID [id number] 00:00:00* Test Item Value Reference Range Interpretation Comme nts CHOLESTEROL (test code = 2210) 201 MG/DL TRIGLYCERIDES (test code = 2232) 90 MG/DL HDL CHOLESTEROL (test code = 2220) 67 MG/DL CALC LDL CHOL (test code = 2237) 115 MG/DL RISK RATIO LDL/HDL (test cod e = 2238) 1.72 RATIO Jonny HeltonCOMPREHENSIVE METABOLIC [id number] 00:00:00* Test Item Value Reference Range Interpretation Comme nts GLUCOSE (test code = 2217) 178 MG/DL BUN (test code = 2208) 10 MG/DL CREATININE (test code = 2214) 0.79 MG/DL eGFR (2020 CKD-EPI) (test code = 50551) 106 ML/MIN/1.73 CALC BUN/CREAT (test code = 2235) 13 RATIO SODIUM (test code = 2231) 139 MEQ/L POTASSIUM (test code = 2228) 4.7 MEQ/L CHLORIDE (test code = 2215) 102 MEQ/L CARBON DIOXIDE (test code = 2206) 24 MEQ/L CALCIUM (test code = 2209) 9.4 MG/DL PROTEIN, TOTAL (test code = 2229) 6.9 G/DL ALBUMIN (test code = 2201) 4.4 G/DL CALC GLOBULIN (test code = 2240) 2.5 G/DL CALC A/G RATIO (test code = 2234) 1.8 RATIO BILIRUBIN, TOTAL (test code = 2207) 0.9 MG/DL ALKALINE PHOSPHATASE (test code = 2204) 65 U/L AST (test code = 2218) 27 U/L ALT (test code = 2219) 34 U/L Jonny Rust AustinHEMOGLOBIN [id number] 00:00:00* Test Item Value Reference Range Interpretation Comme nts HEMOGLOBIN A1c (test code = 13948) 6.8 % Jonny Rust AustinLIPID [id number] 00:00:00* Test Item Value Reference Range Interpretation Comme nts CHOLESTEROL (test code = 2210) 201 MG/DL TRIGLYCERIDES (test code = 2232) 90 MG/DL HDL CHOLESTEROL (test code = 2220) 67 MG/DL CALC LDL CHOL (test code = 2237) 115 MG/DL RISK RATIO LDL/HDL (test cod e = 2238) 1.72 RATIO Jonny HeltonCOMPREHENSIVE METABOLIC [id number] 00:00:00* Test Item Value Reference Range Interpretation Comme nts GLUCOSE (test code = 2217) 178 MG/DL BUN (test code = 2208) 10 MG/DL CREATININE (test code = 2214) 0.79 MG/DL eGFR (2020 CKD-EPI) (test code = 68792) 106 ML/MIN/1.73 CALC BUN/CREAT (test code = 2235) 13 RATIO SODIUM (test code = 2231) 139 MEQ/L POTASSIUM (test code = 2228) 4.7 MEQ/L CHLORIDE (test code = 2215) 102 MEQ/L CARBON DIOXIDE (test code = 2206) 24 MEQ/L CALCIUM (test code = 2209) 9.4 MG/DL PROTEIN, TOTAL (test code = 2229) 6.9 G/DL ALBUMIN (test code = 2201) 4.4 G/DL CALC GLOBULIN (test code = 2240) 2.5 G/DL CALC A/G RATIO (test code = 2234) 1.8 RATIO BILIRUBIN, TOTAL (test code = 2207) 0.9 MG/DL ALKALINE PHOSPHATASE (test code = 2204) 65 U/L AST (test code = 2218) 27 U/L ALT (test code = 2219) 34 U/L Jonny HeltonHEMOGLOBIN [id number] 00:00:00* Test Item Value Reference Range Interpretation Comme nts HEMOGLOBIN A1c (test code = 66882) 6.8 % Jonny Rust AustinLIPID [id number] 00:00:00* Test Item Value Reference Range Interpretation Comme nts CHOLESTEROL (test code = 2210) 201 MG/DL TRIGLYCERIDES (test code = 2232) 90 MG/DL HDL CHOLESTEROL (test code = 2220) 67 MG/DL CALC LDL CHOL (test code = 2237) 115 MG/DL RISK RATIO LDL/HDL (test cod e = 2238) 1.72 RATIO Jonny HeltonCOMPREHENSIVE METABOLIC [id number] 00:00:00* Test Item Value Reference Range Interpretation Comme nts GLUCOSE (test code = 2217) 178 MG/DL BUN (test code = 2208) 10 MG/DL CREATININE (test code = 2214) 0.79 MG/DL eGFR (2020 CKD-EPI) (test code = 70979) 106 ML/MIN/1.73 CALC BUN/CREAT (test code = 2235) 13 RATIO SODIUM (test code = 2231) 139 MEQ/L POTASSIUM (test code = 2228) 4.7 MEQ/L CHLORIDE (test code = 2215) 102 MEQ/L CARBON DIOXIDE (test code = 2206) 24 MEQ/L CALCIUM (test code = 2209) 9.4 MG/DL PROTEIN, TOTAL (test code = 2229) 6.9 G/DL ALBUMIN (test code = 2201) 4.4 G/DL CALC GLOBULIN (test code = 2240) 2.5 G/DL CALC A/G RATIO (test code = 2234) 1.8 RATIO BILIRUBIN, TOTAL (test code = 2207) 0.9 MG/DL ALKALINE PHOSPHATASE (test code = 2204) 65 U/L AST (test code = 2218) 27 U/L ALT (test code = 2219) 34 U/L Jonny HeltonHEMOGLOBIN [id number] 03:27:39* Test Item Value Reference Range Interpretation Comme nts HEMOGLOBIN A1c (test code = 74804) 8.2 % 4.2-5.6 H [employer] GUIDELINES FOR HGB A1C: PREDIABETES/INCREASED RISK . . . . . . . 5.7-6.4% DIAGNOSIS OF DIABETES . . . . . . . . . >=6.5% WITH CONFIRMATION OR APPROPRIATE SYMPTOMS NOTE: ASSAY MAY BE AFFECTED BY HEMOGLOBINOPATHIES (SICKLE CELL ANEMIA, S-C DISEASE, OTHERS) OR ARTIFICIALLY LOWERED BY DECREASED RED CELL SURVIVAL (HEMOLYTIC ANEMIAS, BLOOD LOSS, ETC.). CONSIDER ALTERNATE TESTING OR LABORATORY CONSULTATION. UNLESS OTHERWISE INDICATED, ALL TESTING PERFORMED AT [facility] [address] [place] [id number] SOLAR THERMAL INSTALLER: Savannah DAWKINSIA NUMBER [id number] [place]. [id number] HEMOGLOBIN [id number] 00:00:00* Test Item Value Reference Range Interpretation Comme nts HEMOGLOBIN A1c (test code = 86713) 8.2 % Jonny Rust AustinHEMOGLOBIN [id number] 00:00:00* Test Item Value Reference Range Interpretation Comme nts HEMOGLOBIN A1c (test code = 11616) 8.2 % Jonny Rust AustinHEMOGLOBIN [id number] 00:00:00* Test Item Value Reference Range Interpretation Comme nts HEMOGLOBIN A1c (test code = 77264) 8.2 % Jonny Rust AustinHEMOGLOBIN [id number] 00:00:00* Test Item Value Reference Range Interpretation Comme nts HEMOGLOBIN A1c (test code = 36585) 8.2 % Jonny Rust AustinHEMOGLOBIN [id number] 00:00:00* Test Item Value Reference Range Interpretation Comme nts HEMOGLOBIN A1c (test code = 83457) 8.2 % Jonny Rust AustinALBUMIN/CREATININE RATIO, URINE, [id number] 05:12:06* Test Item Value Reference Range Interpretation Comme nts CREATININE, URINE, CONC. (test code = 2072) 122.4 MG/DL NOT ESTAB ALBUMIN, URINE, RANDOM (test code = 12575) 3.1 MG/DL NOT ESTAB CALC ALBUMIN/CREAT, RND (test code = 18209) 25 MG/G <30 Note: Albumin/Cr eatinine ratio reference interval reflects ADA and NKF guidelines. UNLESS OTHERWISE INDICATED, ALL TESTING PERFORMED AT [facility] [address] [place] [id number] SOL[employer] INSTALLER: Savannah DAWKINS NUMBER [id number] [place] [id number] COMPREHENSIVE METABOLIC [id number] 03:15:12* Test Item Value Reference Range Interpretation Comme nts GLUCOSE (test code = 2217) 147 MG/DL 70-99 H BUN (test code = 2208) 10 MG/DL 6-20 CREATININE (test code = 2213) 0.76 MG/DL 0.80-1.40 L eGFR (2020 CKD-EPI) (test code = ) 108 ML/MIN/1.73 >60 CALC BUN/CREAT (test code = 2234) 13 RATIO 6-28 SODIUM (test code = 2230) 141 MEQ/L 133-146 POTASSIUM (test code = 2227) 4.7 MEQ/L 3.5-5.4 CHLORIDE (test code = 2214) 104 MEQ/L 95-107 CARBON DIOXIDE (test code = 2205) 26 MEQ/L 19-31 CALCIUM (test code = 2208) 9.1 MG/DL 8.5-10.5 PROTEIN, TOTAL (test code = 2228) 7.2 G/DL 6.1-8.3 ALBUMIN (test code = 2200) 4.6 G/DL 3.5-5.2 CALC GLOBULIN (test code = 2239) 2.6 G/DL 1.9-3.7 CALC A/G RATIO (test code = 2233) 1.8 RATIO 1.0-2.6 BILIRUBIN, TOTAL (test code = 2206) 0.7 MG/DL See_Comment [Automated me ssage] The system which generated this result transmitted reference range: <=1.2. The reference range was not used to interpret this result as normal/abnormal. ALKALINE PHOSPHATASE (test code = 2203) 52 U/L 40-121 AST (test code = 2217) 28 U/L 9-50 ALT (test code = 2218) 42 U/L 5-50 LIPID [id number] 03:15:12* Test Item Value Reference Range Interpretation Comme nts CHOLESTEROL (test code = 2209) 145 MG/DL <200 TRIGLYCERIDES (test code = 223) 99 MG/DL <150 HDL CHOLESTEROL (test code = 2219) 58 MG/DL >39 CALC LDL CHOL (test code = 2236) 69 MG/DL <100 NOTE: CALCULATED LDL IS BASED ON MARC-LARSON METHOD WHICHINCLUDES ADJUSTABLE TRIGLYCERIDE:VLDL CHOLESTEROL RATIO.THIS FACTOR VARIES BY MEASURED TRIGLYCERIDE AND NON-HDLCHOLESTEROL CONCENTRATIONS WITH INCREASED CALCULATED LDL SEENIN HIGHER TRIGLYCERIDE OR LOWER NON-HDL SPECIMENS. FOR MOREINFORMATION, SEE CLIENT ANNOUNCEMENT AT [email or web address] RATIO LDL/HDL (test code = 2238) 1.19 RATIO <3.55 HEMOGLOBIN [id number] 02:59:29* Test Item Value Reference Range Interpretation Comme [facility] HEMOGLOBIN A1c (test code = 20565) 6.6 % 4.2-5.6 H [employer] GUIDELINES FOR HGB A1C: PREDIABETES/INCREASED RISK . . . . . . . 5.7-6.4% DIAGNOSIS OF DIABETES . . . . . . . . . >=6.5% WITH CONFIRMATION OR APPROPRIATE SYMPTOMS NOTE: ASSAY MAY BE AFFECTED BY HEMOGLOBINOPATHIES (SICKLE CELL ANEMIA, S-C DISEASE, OTHERS) OR ARTIFICIALLY LOWERED BY DECREASED RED CELL SURVIVAL (HEMOLYTIC ANEMIAS, BLOOD LOSS, ETC.). CONSIDER ALTERNATE TESTING OR LABORATORY CONSULTATION. COMPREHENSIVE METABOLIC [id number] 00:00:00* Test Item Value Reference Range Interpretation Comme nts GLUCOSE (test code = 2217) 147 MG/DL BUN (test code = 2208) 10 MG/DL CREATININE (test code = 2214) 0.76 MG/DL eGFR (2020 CKD-EPI) (test code = 48767) 108 ML/MIN/1.73 CALC BUN/CREAT (test code = 2235) 13 RATIO SODIUM (test code = 2231) 141 MEQ/L POTASSIUM (test code = 2228) 4.7 MEQ/L CHLORIDE (test code = 2215) 104 MEQ/L CARBON DIOXIDE (test code = 2206) 26 MEQ/L CALCIUM (test code = 2209) 9.1 MG/DL PROTEIN, TOTAL (test code = 2229) 7.2 G/DL ALBUMIN (test code = 2201) 4.6 G/DL CALC GLOBULIN (test code = 2240) 2.6 G/DL CALC A/G RATIO (test code = 2234) 1.8 RATIO BILIRUBIN, TOTAL (test code = 2207) 0.7 MG/DL ALKALINE PHOSPHATASE (test code = 2204) 52 U/L AST (test code = 2218) 28 U/L ALT (test code = 2219) 42 U/L Jonny Yocasta AustinLIPID [id number] 00:00:00* Test Item Value Reference Range Interpretation Comme nts CHOLESTEROL (test code = 2210) 145 MG/DL TRIGLYCERIDES (test code = 2232) 99 MG/DL HDL CHOLESTEROL (test code = 2220) 58 MG/DL CALC LDL CHOL (test code = 2237) 69 MG/DL RISK RATIO LDL/HDL (test cod e = 2238) 1.19 RATIO Jonny HeltonHEMOGLOBIN [id number] 00:00:00* Test Item Value Reference Range Interpretation Comme merry HEMOGLOBIN A1c (test code = 61851) 6.6 % Jonny Rust AustinALBUMIN/CREATININE RATIO, RANDOM [id number] 00:00:00* Test Item Value Reference Range Interpretation Comme nts CREATININE, URINE, CONC. (te st code = 2072) 122.4 MG/DL ALBUMIN, URINE, RANDOM (test code = 73595) 3.1 MG/DL CALC ALBUMIN/CREAT, RND (andrea t code = 85100) 25 MG/G Jonny HeltonCOMPREHENSIVE METABOLIC [id number] 00:00:00* Test Item Value Reference Range Interpretation Comme nts GLUCOSE (test code = 2217) 147 MG/DL BUN (test code = 2208) 10 MG/DL CREATININE (test code = 2214) 0.76 MG/DL eGFR (2020 CKD-EPI) (test code = 29035) 108 ML/MIN/1.73 CALC BUN/CREAT (test code = 2235) 13 RATIO SODIUM (test code = 2231) 141 MEQ/L POTASSIUM (test code = 2228) 4.7 MEQ/L CHLORIDE (test code = 2215) 104 MEQ/L CARBON DIOXIDE (test code = 2206) 26 MEQ/L CALCIUM (test code = 2209) 9.1 MG/DL PROTEIN, TOTAL (test code = 2229) 7.2 G/DL ALBUMIN (test code = 2201) 4.6 G/DL CALC GLOBULIN (test code = 2240) 2.6 G/DL CALC A/G RATIO (test code = 2234) 1.8 RATIO BILIRUBIN, TOTAL (test code = 2207) 0.7 MG/DL ALKALINE PHOSPHATASE (test code = 2204) 52 U/L AST (test code = 2218) 28 U/L ALT (test code = 2219) 42 U/L Jonny HeltonLIPID [id number] 00:00:00* Test Item Value Reference Range Interpretation Comme nts CHOLESTEROL (test code = 2210) 145 MG/DL TRIGLYCERIDES (test code = 2232) 99 MG/DL HDL CHOLESTEROL (test code = 2220) 58 MG/DL CALC LDL CHOL (test code = 2237) 69 MG/DL RISK RATIO LDL/HDL (test cod e = 2238) 1.19 RATIO Jonny HeltonHEMOGLOBIN [id number] 00:00:00* Test Item Value Reference Range Interpretation Comme nts HEMOGLOBIN A1c (test code = 31664) 6.6 % Jonny Rust AustinALBUMIN/CREATININE RATIO, RANDOM [id number] 00:00:00* Test Item Value Reference Range Interpretation Comme nts CREATININE, URINE, CONC. (te st code = 2072) 122.4 MG/DL ALBUMIN, URINE, RANDOM (test code = 18187) 3.1 MG/DL CALC ALBUMIN/CREAT, RND (andrea t code = 21214) 25 MG/G Jonny HeltonCOMPREHENSIVE METABOLIC [id number] 00:00:00* Test Item Value Reference Range Interpretation Comme nts GLUCOSE (test code = 2217) 147 MG/DL BUN (test code = 2208) 10 MG/DL CREATININE (test code = 2214) 0.76 MG/DL eGFR (2020 CKD-EPI) (test code = 26045) 108 ML/MIN/1.73 CALC BUN/CREAT (test code = 2235) 13 RATIO SODIUM (test code = 2231) 141 MEQ/L POTASSIUM (test code = 2228) 4.7 MEQ/L CHLORIDE (test code = 2215) 104 MEQ/L CARBON DIOXIDE (test code = 2206) 26 MEQ/L CALCIUM (test code = 2209) 9.1 MG/DL PROTEIN, TOTAL (test code = 2229) 7.2 G/DL ALBUMIN (test code = 2201) 4.6 G/DL CALC GLOBULIN (test code = 2240) 2.6 G/DL CALC A/G RATIO (test code = 2234) 1.8 RATIO BILIRUBIN, TOTAL (test code = 2207) 0.7 MG/DL ALKALINE PHOSPHATASE (test code = 2204) 52 U/L AST (test code = 2218) 28 U/L ALT (test code = 2219) 42 U/L Jonny HeltonLIPID [id number] 00:00:00* Test Item Value Reference Range Interpretation Comme nts CHOLESTEROL (test code = 2210) 145 MG/DL TRIGLYCERIDES (test code = 2232) 99 MG/DL HDL CHOLESTEROL (test code = 2220) 58 MG/DL CALC LDL CHOL (test code = 2237) 69 MG/DL RISK RATIO LDL/HDL (test cod e = 2238) 1.19 RATIO Jonny HeltonHEMOGLOBIN [id number] 00:00:00* Test Item Value Reference Range Interpretation Comme nts HEMOGLOBIN A1c (test code = 82473) 6.6 % Jonny Rust AustinALBUMIN/CREATININE RATIO, RANDOM [id number] 00:00:00* Test Item Value Reference Range Interpretation Comme nts CREATININE, URINE, CONC. (te st code = 2072) 122.4 MG/DL ALBUMIN, URINE, RANDOM (test code = 99262) 3.1 MG/DL CALC ALBUMIN/CREAT, RND (andrea t code = 29938) 25 MG/G Jonny HeltonCOMPREHENSIVE METABOLIC [id number] 00:00:00* Test Item Value Reference Range Interpretation Comme nts GLUCOSE (test code = 2217) 147 MG/DL BUN (test code = 2208) 10 MG/DL CREATININE (test code = 2214) 0.76 MG/DL eGFR (2020 CKD-EPI) (test code = 41392) 108 ML/MIN/1.73 CALC BUN/CREAT (test code = 2235) 13 RATIO SODIUM (test code = 2231) 141 MEQ/L POTASSIUM (test code = 2228) 4.7 MEQ/L CHLORIDE (test code = 2215) 104 MEQ/L CARBON DIOXIDE (test code = 2206) 26 MEQ/L CALCIUM (test code = 2209) 9.1 MG/DL PROTEIN, TOTAL (test code = 2229) 7.2 G/DL ALBUMIN (test code = 2201) 4.6 G/DL CALC GLOBULIN (test code = 2240) 2.6 G/DL CALC A/G RATIO (test code = 2234) 1.8 RATIO BILIRUBIN, TOTAL (test code = 2207) 0.7 MG/DL ALKALINE PHOSPHATASE (test code = 2204) 52 U/L AST (test code = 2218) 28 U/L ALT (test code = 2219) 42 U/L Jonny F AustinLIPID [id number] 00:00:00* Test Item Value Reference Range Interpretation Comme nts CHOLESTEROL (test code = 2210) 145 MG/DL TRIGLYCERIDES (test code = 2232) 99 MG/DL HDL CHOLESTEROL (test code = 2220) 58 MG/DL CALC LDL CHOL (test code = 2237) 69 MG/DL RISK RATIO LDL/HDL (test cod e = 2238) 1.19 RATIO Jonny HeltonHEMOGLOBIN [id number] 00:00:00* Test Item Value Reference Range Interpretation Comme nts HEMOGLOBIN A1c (test code = 03182) 6.6 % Jonny HeltonALBUMIN/CREATININE RATIO, RANDOM [id number] 00:00:00* Test Item Value Reference Range Interpretation Comme nts CREATININE, URINE, CONC. (te st code = 2072) 122.4 MG/DL ALBUMIN, URINE, RANDOM (test code = 48967) 3.1 MG/DL CALC ALBUMIN/CREAT, RND (andrea t code = 79192) 25 MG/G Jonny HeltonCOMPREHENSIVE METABOLIC [id number] 00:00:00* Test Item Value Reference Range Interpretation Comme nts GLUCOSE (test code = 2217) 147 MG/DL BUN (test code = 2208) 10 MG/DL CREATININE (test code = 2214) 0.76 MG/DL eGFR (2020 CKD-EPI) (test code = 20876) 108 ML/MIN/1.73 CALC BUN/CREAT (test code = 2235) 13 RATIO SODIUM (test code = 2231) 141 MEQ/L POTASSIUM (test code = 2228) 4.7 MEQ/L CHLORIDE (test code = 2215) 104 MEQ/L CARBON DIOXIDE (test code = 2206) 26 MEQ/L CALCIUM (test code = 2209) 9.1 MG/DL PROTEIN, TOTAL (test code = 2229) 7.2 G/DL ALBUMIN (test code = 2201) 4.6 G/DL CALC GLOBULIN (test code = 2240) 2.6 G/DL CALC A/G RATIO (test code = 2234) 1.8 RATIO BILIRUBIN, TOTAL (test code = 2207) 0.7 MG/DL ALKALINE PHOSPHATASE (test code = 2204) 52 U/L AST (test code = 2218) 28 U/L ALT (test code = 2219) 42 U/L Jonny HeltonLIPID [id number] 00:00:00* Test Item Value Reference Range Interpretation Comme nts CHOLESTEROL (test code = 2210) 145 MG/DL TRIGLYCERIDES (test code = 2232) 99 MG/DL HDL CHOLESTEROL (test code = 2220) 58 MG/DL CALC LDL CHOL (test code = 2237) 69 MG/DL RISK RATIO LDL/HDL (test cod e = 2238) 1.19 RATIO Jonny Rust AustinHEMOGLOBIN [id number] 00:00:00* Test Item Value Reference Range Interpretation Comme nts HEMOGLOBIN A1c (test code = 30461) 6.6 % Jonny Rust AustinALBUMIN/CREATININE RATIO, RANDOM [id number] 00:00:00* Test Item Value Reference Range Interpretation Comme nts CREATININE, URINE, CONC. (te st code = 2072) 122.4 MG/DL ALBUMIN, URINE, RANDOM (test code = 29453) 3.1 MG/DL CALC ALBUMIN/CREAT, RND (andrea t code = 27603) 25 MG/G Jonny Rust AustinHEMOGLOBIN [id number] 00:00:00* Test Item Value Reference Range Interpretation Comme nts HEMOGLOBIN A1c (test code = 62882) 6.6 % Jonny Rust AustinHEMOGLOBIN [id number] 00:00:00* Test Item Value Reference Range Interpretation Comme nts HEMOGLOBIN A1c (test code = 85458) 6.6 % Jonny Rust AustinHEMOGLOBIN [id number] 00:00:00* Test Item Value Reference Range Interpretation Comme nts HEMOGLOBIN A1c (test code = 18840) 6.6 % Jonny Rust AustinHEMOGLOBIN [id number] 00:00:00* Test Item Value Reference Range Interpretation Comme nts HEMOGLOBIN A1c (test code = 20276) 6.6 % Jonny Rust AustinHEMOGLOBIN [id number] 00:00:00* Test Item Value Reference Range Interpretation Comme nts HEMOGLOBIN A1c (test code = 12590) 6.6 % Jonny HeltonLIPID [id number] 06:22:41* Test Item Value Reference Range Interpretation Comme nts CHOLESTEROL (test code = 2210) 145 MG/DL <200 TRIGLYCERIDES (test code = 2232) 80 MG/DL <150 HDL CHOLESTEROL (test code = 2220) 64 MG/DL >39 CALC LDL CHOL (test code = 2237) 65 MG/DL <100 NOTE: CALCULATED LDL IS BASED ON MARC-LARSON METHOD WHICHINCLUDES ADJUSTABLE TRIGLYCERIDE:VLDL CHOLESTEROL RATIO.THIS FACTOR VARIES BY MEASURED TRIGLYCERIDE AND NON-HDLCHOLESTEROL CONCENTRATIONS WITH INCREASED CALCULATED LDL SEENIN HIGHER TRIGLYCERIDE OR LOWER NON-HDL SPECIMENS. FOR MOREINFORMATION, SEE CLIENT ANNOUNCEMENT AT [email or web address] RISK RATIO LDL/HDL (test code = 2238) 1.02 RATIO <3.55 UNLESS OTHERW ISE INDICATED, ALL TESTING PERFORMED [facility] [employer] [address] [place] [id number] SOLAR THERMAL INSTALLER: JORDAN CORONA M.D. IA NUMBER [id number] [facility] [place]. [id number] HEMOGLOBIN [id number] 02:07:16* Test Item Value Reference Range Interpretation Comme nts HEMOGLOBIN A1c (test code = 17034) 8.3 % 4.2-5.6 H [employer] GUIDELINES FOR HGB A1C: PREDIABETES/INCREASED RISK . . . . . . . 5.7-6.4% DIAGNOSIS OF DIABETES . . . . . . . . . >=6.5% WITH CONFIRMATION OR APPROPRIATE SYMPTOMS NOTE: ASSAY MAY BE AFFECTED BY HEMOGLOBINOPATHIES (SICKLE CELL ANEMIA, S-C DISEASE, OTHERS) OR ARTIFICIALLY LOWERED BY DECREASED RED CELL SURVIVAL (HEMOLYTIC ANEMIAS, BLOOD LOSS, ETC.). CONSIDER ALTERNATE TESTING OR LABORATORY CONSULTATION. HEMOGLOBIN [id number] 00:00:00* Test Item Value Reference Range Interpretation Comme nts HEMOGLOBIN A1c (test code = 56531) 8.3 % Jonny Rust AustinLIPID [id number] 00:00:00* Test Item Value Reference Range Interpretation Comme nts CHOLESTEROL (test code = 2210) 145 MG/DL TRIGLYCERIDES (test code = 2232) 80 MG/DL HDL CHOLESTEROL (test code = 2220) 64 MG/DL CALC LDL CHOL (test code = 2237) 65 MG/DL RISK RATIO LDL/HDL (test cod e = 2238) 1.02 RATIO Jonny Rust AustinHEMOGLOBIN [id number] 00:00:00* Test Item Value Reference Range Interpretation Comme nts HEMOGLOBIN A1c (test code = 26192) 8.3 % Jonny Rust AustinLIPID [id number] 00:00:00* Test Item Value Reference Range Interpretation Comme nts CHOLESTEROL (test code = 2210) 145 MG/DL TRIGLYCERIDES (test code = 2232) 80 MG/DL HDL CHOLESTEROL (test code = 2220) 64 MG/DL CALC LDL CHOL (test code = 2237) 65 MG/DL RISK RATIO LDL/HDL (test cod e = 2238) 1.02 RATIO Jonny Rust AustinHEMOGLOBIN [id number] 00:00:00* Test Item Value Reference Range Interpretation Comme nts HEMOGLOBIN A1c (test code = 38695) 8.3 % Jonny Rust AustinLIPID [id number] 00:00:00* Test Item Value Reference Range Interpretation Comme nts CHOLESTEROL (test code = 2210) 145 MG/DL TRIGLYCERIDES (test code = 2232) 80 MG/DL HDL CHOLESTEROL (test code = 2220) 64 MG/DL CALC LDL CHOL (test code = 2237) 65 MG/DL RISK RATIO LDL/HDL (test cod e = 2238) 1.02 RATIO Jonny Rust AustinHEMOGLOBIN [id number] 00:00:00* Test Item Value Reference Range Interpretation Comme nts HEMOGLOBIN A1c (test code = 39088) 8.3 % Jonny Rust AustinLIPID [id number] 00:00:00* Test Item Value Reference Range Interpretation Comme nts CHOLESTEROL (test code = 2210) 145 MG/DL TRIGLYCERIDES (test code = 2232) 80 MG/DL HDL CHOLESTEROL (test code = 2220) 64 MG/DL CALC LDL CHOL (test code = 2237) 65 MG/DL RISK RATIO LDL/HDL (test cod e = 2238) 1.02 RATIO Jonny Rust AustinHEMOGLOBIN [id number] 00:00:00* Test Item Value Reference Range Interpretation Comme nts HEMOGLOBIN A1c (test code = 79520) 8.3 % Jonny Rust AustinLIPID [id number] 00:00:00* Test Item Value Reference Range Interpretation Comme nts CHOLESTEROL (test code = 2210) 145 MG/DL TRIGLYCERIDES (test code = 2232) 80 MG/DL HDL CHOLESTEROL (test code = 2220) 64 MG/DL CALC LDL CHOL (test code = 2237) 65 MG/DL RISK RATIO LDL/HDL (test cod e = 2238) 1.02 RATIO Jonny HeltonLIPID [id number] 01:22:12* Test Item Value Reference Range Interpretation Comme nts CHOLESTEROL (test code = 2210) 154 MG/DL <200 TRIGLYCERIDES (test code = 2232) 246 MG/DL <150 H HDL CHOLESTEROL (test code = 2220) 54 MG/DL >39 CALC LDL CHOL (test code = 2237) 66 MG/DL <100 NOTE: CALCULATED LDL IS BASED ON MARC-LARSON METHOD WHICHINCLUDES ADJUSTABLE TRIGLYCERIDE:VLDL CHOLESTEROL RATIO.THIS FACTOR VARIES BY MEASURED TRIGLYCERIDE AND NON-HDLCHOLESTEROL CONCENTRATIONS WITH INCREASED CALCULATED LDL SEENIN HIGHER TRIGLYCERIDE OR LOWER NON-HDL SPECIMENS. FOR MOREINFORMATION, SEE CLIENT ANNOUNCEMENT AT [email or web address] RISK RATIO LDL/HDL (test code = 2238) 1.22 RATIO <3.55 UNLESS OTHERW ISE INDICATED, ALL TESTING PERFORMED [facility] [employer] [address] [place] [address] SOLAR THERMAL INSTALLER: JORDAN CORONA M.D. CLIA NUMBER [id number] [facility] [place]. [id number] LIPID [id number] 00:00:00* Test Item Value Reference Range Interpretation Comme nts CHOLESTEROL (test code = 2210) 154 MG/DL TRIGLYCERIDES (test code = 2232) 246 MG/DL HDL CHOLESTEROL (test code = 2220) 54 MG/DL CALC LDL CHOL (test code = 2237) 66 MG/DL RISK RATIO LDL/HDL (test cod e = 2238) 1.22 RATIO Jonny HeltonLIPID [id number] 00:00:00* Test Item Value Reference Range Interpretation Comme nts CHOLESTEROL (test code = 2210) 154 MG/DL TRIGLYCERIDES (test code = 2232) 246 MG/DL HDL CHOLESTEROL (test code = 2220) 54 MG/DL CALC LDL CHOL (test code = 2237) 66 MG/DL RISK RATIO LDL/HDL (test cod e = 2238) 1.22 RATIO Jonny Rust AustinLIPID [id number] 00:00:00* Test Item Value Reference Range Interpretation Comme nts CHOLESTEROL (test code = 2210) 154 MG/DL TRIGLYCERIDES (test code = 2232) 246 MG/DL HDL CHOLESTEROL (test code = 2220) 54 MG/DL CALC LDL CHOL (test code = 2237) 66 MG/DL RISK RATIO LDL/HDL (test cod e = 2238) 1.22 RATIO Jonny Rust AustinLIPID [id number] 00:00:00* Test Item Value Reference Range Interpretation Comme nts CHOLESTEROL (test code = 2210) 154 MG/DL TRIGLYCERIDES (test code = 2232) 246 MG/DL HDL CHOLESTEROL (test code = 2220) 54 MG/DL CALC LDL CHOL (test code = 2237) 66 MG/DL RISK RATIO LDL/HDL (test cod e = 2238) 1.22 RATIO Jonny Rust AustinLIPID [id number] 00:00:00* Test Item Value Reference Range Interpretation Comme nts CHOLESTEROL (test code = 2210) 154 MG/DL TRIGLYCERIDES (test code = 2232) 246 MG/DL HDL CHOLESTEROL (test code = 2220) 54 MG/DL CALC LDL CHOL (test code = 2237) 66 MG/DL RISK RATIO LDL/HDL (test cod e = 2238) 1.22 RATIO Jonny Rust AustinHEMOGLOBIN [id number] 16:45:38* Test Item Value Reference Range Interpretation Comme nts HEMOGLOBIN A1c (test code = 06223) 9.2 % 4.2-5.6 H [employer] S [employer]OCIATION GUIDELINES FOR HGB A1C: PREDIABETES/INCREASED RISK . . . . . . . 5.7-6.4% DIAGNOSIS OF DIABETES . . . . . . . . . >=6.5% WITH CONFIRMATION OR APPROPRIATE SYMPTOMS NOTE: ASSAY MAY BE AFFECTED BY HEMOGLOBINOPATHIES (SICKLE CELL ANEMIA, S-C DISEASE, OTHERS) OR ARTIFICIALLY LOWERED BY DECREASED RED CELL SURVIVAL (HEMOLYTIC ANEMIAS, BLOOD LOSS, ETC.). CONSIDER ALTERNATE TESTING OR LABORATORY CONSULTATION. HEMOGLOBIN [id number] 00:00:00* Test Item Value Reference Range Interpretation Comme nts HEMOGLOBIN A1c (test code = 15985) 9.2 % Jonny Rust AustinHEMOGLOBIN [id number] 00:00:00* Test Item Value Reference Range Interpretation Comme nts HEMOGLOBIN A1c (test code = 42450) 9.2 % Jonny Rust AustinHEMOGLOBIN [id number] 00:00:00* Test Item Value Reference Range Interpretation Comme nts HEMOGLOBIN A1c (test code = 13560) 9.2 % Jonny HeltonHEMOGLOBIN [id number] 00:00:00* Test Item Value Reference Range Interpretation Comme nts HEMOGLOBIN A1c (test code = 80983) 9.2 % Jonny Rust AustinHEMOGLOBIN [id number] 00:00:00* Test Item Value Reference Range Interpretation Comme merry HEMOGLOBIN A1c (test code = 31208) 9.2 % Jonny Rust AustinHIV 1/2 4TH GEN, RFLX [id number] 03:26:41* Test Item Value Reference Range Interpretation Comme nts HIV 1/2 4TH GEN, RFLX CONF ( test code = 3514) NON-REACTIVE NON-REACTIVE ALBUMIN/CREATININE RATIO, URINE, [id number] 02:46:02* Test Item Value Reference Range Interpretation Comme nts CREATININE, URINE, RANDOM (test code = 2072) 196.8 MG/DL NOT ESTAB ALBUMIN, URINE, RANDOM (test code = 46177) 6.7 MG/DL NOT ESTAB CALC ALBUMIN/CREAT, RND (test code = 99752) 34 MG/G <30 H Note: Albumin/Cr eatinine ratio reference interval reflects ADA and NKF guidelines. UNLESS OTHERWISE INDICATED, ALL TESTING PERFORMED [facility] [address] [place] [address] SOLAR THERMAL INSTALLER: JORDAN CORONA M.D. CLIA NUMBER [id number] [facility] [place]. [id number] HIV AB/AG COMBO RFLX [id number] 00:00:00* Test Item Value Reference Range Interpretation Comme nts HIV 1/2 4TH GEN, RFLX CONF ( test code = 3514) NON-REACTIVE Jonny Rust AustinMICROALBUMIN/CREATININE, RANDOM AND [id number] 00:00:00* Test Item Value Reference Range Interpretation Comme nts CREATININE, URINE, RANDOM (t est code = 2072) 196.8 MG/DL ALBUMIN, URINE, RANDOM (test code = 18885) 6.7 MG/DL CALC ALBUMIN/CREAT, RND (andrea t code = 19862) 34 MG/G Jonny Rust AustinHIV AB/AG COMBO RFLX [id number] 00:00:00* Test Item Value Reference Range Interpretation Comme nts HIV 1/2 4TH GEN, RFLX CONF ( test code = 3514) NON-REACTIVE Jonny F AustinMICROALBUMIN/CREATININE, RANDOM AND [id number] 00:00:00* Test Item Value Reference Range Interpretation Comme nts CREATININE, URINE, RANDOM (t est code = 2071) 196.8 MG/DL ALBUMIN, URINE, RANDOM (test code = 79742) 6.7 MG/DL CALC ALBUMIN/CREAT, RND (andrea t code = 90036) 34 MG/G Jonny F AustinHIV AB/AG COMBO RFLX [id number] 00:00:00* Test Item Value Reference Range Interpretation Comme nts HIV 1/2 4TH GEN, RFLX CONF ( test code = 3514) NON-REACTIVE Jonny F AustinMICROALBUMIN/CREATININE, RANDOM AND [id number] 00:00:00* Test Item Value Reference Range Interpretation Comme nts CREATININE, URINE, RANDOM (t est code = 207) 196.8 MG/DL ALBUMIN, URINE, RANDOM (test code = 50696) 6.7 MG/DL CALC ALBUMIN/CREAT, RND (andrea t code = 31470) 34 MG/G Jonny F AustinHIV AB/AG COMBO RFLX [id number] 00:00:00* Test Item Value Reference Range Interpretation Comme nts HIV 1/2 4TH GEN, RFLX CONF ( test code = 3514) NON-REACTIVE Jonny F AustinMICROALBUMIN/CREATININE, RANDOM AND [id number] 00:00:00* Test Item Value Reference Range Interpretation Comme nts CREATININE, URINE, RANDOM (t est code = 2071) 196.8 MG/DL ALBUMIN, URINE, RANDOM (test code = 03016) 6.7 MG/DL CALC ALBUMIN/CREAT, RND (andrea t code = 83893) 34 MG/G Jonny F AustinHIV AB/AG COMBO RFLX [id number] 00:00:00* Test Item Value Reference Range Interpretation Comme nts HIV 1/2 4TH GEN, RFLX CONF ( test code = 3514) NON-REACTIVE Jonny F AustinMICROALBUMIN/CREATININE, RANDOM AND [id number] 00:00:00* Test Item Value Reference Range Interpretation Comme nts CREATININE, URINE, RANDOM (t est code = 2072) 196.8 MG/DL ALBUMIN, URINE, RANDOM (test code = 39959) 6.7 MG/DL CALC ALBUMIN/CREAT, RND (andrea t code = 41033) 34 MG/G Jonny Springer, [id number] 02:23:42* Test Item Value Reference Range Interpretation Comme nts PSA, TOTAL (test code = 2606) 0.22 NG/ML See_Comment NOTE: Methodolog y is Deepak Marilyn Electrochemiluminescence Immunoassay traceable to WHO reference standard 96/760. [Automated message] The system which generated this result transmitted reference range: <=4.00. The reference range was not used to interpret this result as normal/abnormal. TSH, THIRD [id number] 02:23:42* Test Item Value Reference Range Interpretation Comme nts TSH, THIRD GENERATION (test code = 2821) 1.380 UIU/ML 0.400-4.100 LIPID [id number] 00:11:59* Test Item Value Reference Range Interpretation Comme nts CHOLESTEROL (test code = 2210) 216 MG/DL <200 H TRIGLYCERIDES (test code = 2232) 156 MG/DL <150 H HDL CHOLESTEROL (test code = 2220) 62 MG/DL >39 CALC LDL CHOL (test code = 2237) 127 MG/DL <100 H NOTE: CALCULATED LDL IS BASED ON MARC-LARSON METHOD WHICHINCLUDES ADJUSTABLE TRIGLYCERIDE:VLDL CHOLESTEROL RATIO.THIS FACTOR VARIES BY MEASURED TRIGLYCERIDE AND NON-HDLCHOLESTEROL CONCENTRATIONS WITH INCREASED CALCULATED LDL SEENIN HIGHER TRIGLYCERIDE OR LOWER NON-HDL SPECIMENS. FOR MOREINFORMATION, SEE CLIENT ANNOUNCEMENT AT [email or web address] /[email or web address]-[email or web address] RISK RATIO LDL/HDL (test code = 2238) 2.05 RATIO <3.55 COMPREHENSIVE METABOLIC [id number] 00:11:59* Test Item Value Reference Range Interpretation Comme nts GLUCOSE (test code = 2217) 230 MG/DL 70-99 H BUN (test code = 2208) 10 MG/DL 6-20 CREATININE (test code = 2214) 0.71 MG/DL 0.80-1.40 L eGFR (2020 CKD-EPI) (test code = 51378) 111 ML/MIN/1.73 >60 CALC BUN/CREAT (test code = 2235) 14 RATIO 6-28 SODIUM (test code = 2231) 136 MEQ/L 133-146 POTASSIUM (test code = 2228) 4.2 MEQ/L 3.5-5.4 CHLORIDE (test code = 2215) 99 MEQ/L 95-107 CARBON DIOXIDE (test code = 2206) 21 MEQ/L 19-31 CALCIUM (test code = 2209) 9.6 MG/DL 8.5-10.5 PROTEIN, TOTAL (test code = 2229) 7.4 G/DL 6.1-8.3 ALBUMIN (test code = 2201) 4.8 G/DL 3.5-5.2 CALC GLOBULIN (test code = 2240) 2.6 G/DL 1.9-3.7 CALC A/G RATIO (test code = 2234) 1.8 RATIO 1.0-2.6 BILIRUBIN, TOTAL (test code = 2207) 1.2 MG/DL See_Comment [Automated me ssage] The system which generated this result transmitted reference range: <=1.2. The reference range was not used to interpret this result as normal/abnormal. ALKALINE PHOSPHATASE (test code = 4) 63 U/L 40-121 AST (test code = 2218) 22 U/L 9-50 ALT (test code = 2219) 37 U/L 5-50 LIPID [id number] 00:00:00* Test Item Value Reference Range Interpretation Comme nts CHOLESTEROL (test code = 2210) 216 MG/DL TRIGLYCERIDES (test code = 2232) 156 MG/DL HDL CHOLESTEROL (test code = 2220) 62 MG/DL CALC LDL CHOL (test code = 2237) 127 MG/DL RISK RATIO LDL/HDL (test cod e = 2238) 2.05 RATIO Jonny F AustinCOMPREHENSIVE METABOLIC [id number] 00:00:00* Test Item Value Reference Range Interpretation Comme nts GLUCOSE (test code = 2217) 230 MG/DL BUN (test code = 2208) 10 MG/DL CREATININE (test code = 2214) 0.71 MG/DL eGFR (2020 CKD-EPI) (test code = 09994) 111 ML/MIN/1.73 CALC BUN/CREAT (test code = 2235) 14 RATIO SODIUM (test code = 2231) 136 MEQ/L POTASSIUM (test code = 2228) 4.2 MEQ/L CHLORIDE (test code = 2215) 99 MEQ/L CARBON DIOXIDE (test code = 2206) 21 MEQ/L CALCIUM (test code = 2209) 9.6 MG/DL PROTEIN, TOTAL (test code = 2229) 7.4 G/DL ALBUMIN (test code = 2201) 4.8 G/DL CALC GLOBULIN (test code = 2240) 2.6 G/DL CALC A/G RATIO (test code = 2234) 1.8 RATIO BILIRUBIN, TOTAL (test code = 2207) 1.2 MG/DL ALKALINE PHOSPHATASE (test code = 2204) 63 U/L AST (test code = 2218) 22 U/L ALT (test code = 2219) 37 U/L Jonny HeltonPSA, [id number] 00:00:00* Test Item Value Reference Range Interpretation Comme nts PSA, TOTAL (test code = 2606) 0.22 NG/ML Jonny [id number] 00:00:00* Test Item Value Reference Range Interpretation Comme nts TSH, THIRD GENERATION (test code = 2821) 1.380 UIU/ML Jonny HeltonLIPID [id number] 00:00:00* Test Item Value Reference Range Interpretation Comme nts CHOLESTEROL (test code = 2210) 216 MG/DL TRIGLYCERIDES (test code = 2232) 156 MG/DL HDL CHOLESTEROL (test code = 2220) 62 MG/DL CALC LDL CHOL (test code = 2237) 127 MG/DL RISK RATIO LDL/HDL (test cod e = 2238) 2.05 RATIO Jonny HeltonCOMPREHENSIVE METABOLIC [id number] 00:00:00* Test Item Value Reference Range Interpretation Comme nts GLUCOSE (test code = 2217) 230 MG/DL BUN (test code = 2208) 10 MG/DL CREATININE (test code = 2214) 0.71 MG/DL eGFR (2020 CKD-EPI) (test code = 44352) 111 ML/MIN/1.73 CALC BUN/CREAT (test code = 2235) 14 RATIO SODIUM (test code = 2231) 136 MEQ/L POTASSIUM (test code = 2228) 4.2 MEQ/L CHLORIDE (test code = 2215) 99 MEQ/L CARBON DIOXIDE (test code = 2206) 21 MEQ/L CALCIUM (test code = 2209) 9.6 MG/DL PROTEIN, TOTAL (test code = 2229) 7.4 G/DL ALBUMIN (test code = 2201) 4.8 G/DL CALC GLOBULIN (test code = 2240) 2.6 G/DL CALC A/G RATIO (test code = 2234) 1.8 RATIO BILIRUBIN, TOTAL (test code = 2207) 1.2 MG/DL ALKALINE PHOSPHATASE (test code = 2204) 63 U/L AST (test code = 2218) 22 U/L ALT (test code = 2219) 37 U/L Jonny HeltonPSA, [id number] 00:00:00* Test Item Value Reference Range Interpretation Comme nts PSA, TOTAL (test code = 2606) 0.22 NG/ML Jonny [id number] 00:00:00* Test Item Value Reference Range Interpretation Comme nts TSH, THIRD GENERATION (test code = 2821) 1.380 UIU/ML Jonny HeltonLIPID [id number] 00:00:00* Test Item Value Reference Range Interpretation Comme nts CHOLESTEROL (test code = 2210) 216 MG/DL TRIGLYCERIDES (test code = 2232) 156 MG/DL HDL CHOLESTEROL (test code = 2220) 62 MG/DL CALC LDL CHOL (test code = 2237) 127 MG/DL RISK RATIO LDL/HDL (test cod e = 2238) 2.05 RATIO Jonny HeltonCOMPREHENSIVE METABOLIC [id number] 00:00:00* Test Item Value Reference Range Interpretation Comme nts GLUCOSE (test code = 2217) 230 MG/DL BUN (test code = 2208) 10 MG/DL CREATININE (test code = 2214) 0.71 MG/DL eGFR (2020 CKD-EPI) (test code = 74410) 111 ML/MIN/1.73 CALC BUN/CREAT (test code = 2235) 14 RATIO SODIUM (test code = 2231) 136 MEQ/L POTASSIUM (test code = 2228) 4.2 MEQ/L CHLORIDE (test code = 2215) 99 MEQ/L CARBON DIOXIDE (test code = 2206) 21 MEQ/L CALCIUM (test code = 2209) 9.6 MG/DL PROTEIN, TOTAL (test code = 2229) 7.4 G/DL ALBUMIN (test code = 2201) 4.8 G/DL CALC GLOBULIN (test code = 2240) 2.6 G/DL CALC A/G RATIO (test code = 2234) 1.8 RATIO BILIRUBIN, TOTAL (test code = 2207) 1.2 MG/DL ALKALINE PHOSPHATASE (test code = 2204) 63 U/L AST (test code = 2218) 22 U/L ALT (test code = 2219) 37 U/L Jonny HeltonPSA, [id number] 00:00:00* Test Item Value Reference Range Interpretation Comme nts PSA, TOTAL (test code = 2606) 0.22 NG/ML Jonny [id number] 00:00:00* Test Item Value Reference Range Interpretation Comme nts TSH, THIRD GENERATION (test code = 2821) 1.380 UIU/ML Jonny HeltonLIPID [id number] 00:00:00* Test Item Value Reference Range Interpretation Comme nts CHOLESTEROL (test code = 2210) 216 MG/DL TRIGLYCERIDES (test code = 2232) 156 MG/DL HDL CHOLESTEROL (test code = 2220) 62 MG/DL CALC LDL CHOL (test code = 2237) 127 MG/DL RISK RATIO LDL/HDL (test cod e = 2238) 2.05 RATIO Jonny HeltonCOMPREHENSIVE METABOLIC [id number] 00:00:00* Test Item Value Reference Range Interpretation Comme nts GLUCOSE (test code = 2217) 230 MG/DL BUN (test code = 2208) 10 MG/DL CREATININE (test code = 2214) 0.71 MG/DL eGFR (2020 CKD-EPI) (test code = 86235) 111 ML/MIN/1.73 CALC BUN/CREAT (test code = 2235) 14 RATIO SODIUM (test code = 2231) 136 MEQ/L POTASSIUM (test code = 2228) 4.2 MEQ/L CHLORIDE (test code = 2215) 99 MEQ/L CARBON DIOXIDE (test code = 2206) 21 MEQ/L CALCIUM (test code = 2209) 9.6 MG/DL PROTEIN, TOTAL (test code = 2229) 7.4 G/DL ALBUMIN (test code = 2201) 4.8 G/DL CALC GLOBULIN (test code = 2240) 2.6 G/DL CALC A/G RATIO (test code = 2234) 1.8 RATIO BILIRUBIN, TOTAL (test code = 2207) 1.2 MG/DL ALKALINE PHOSPHATASE (test code = 2204) 63 U/L AST (test code = 2218) 22 U/L ALT (test code = 2219) 37 U/L Jonny HeltonPSA, [id number] 00:00:00* Test Item Value Reference Range Interpretation Comme nts PSA, TOTAL (test code = 2606) 0.22 NG/ML Jonny [id number] 00:00:00* Test Item Value Reference Range Interpretation Comme nts TSH, THIRD GENERATION (test code = 2821) 1.380 UIU/ML Jonny HeltonLIPID [id number] 00:00:00* Test Item Value Reference Range Interpretation Comme nts CHOLESTEROL (test code = 2210) 216 MG/DL TRIGLYCERIDES (test code = 2232) 156 MG/DL HDL CHOLESTEROL (test code = 2220) 62 MG/DL CALC LDL CHOL (test code = 2237) 127 MG/DL RISK RATIO LDL/HDL (test cod e = 2238) 2.05 RATIO Jonny HeltonCOMPREHENSIVE METABOLIC [id number] 00:00:00* Test Item Value Reference Range Interpretation Comme nts GLUCOSE (test code = 2217) 230 MG/DL BUN (test code = 2208) 10 MG/DL CREATININE (test code = 2214) 0.71 MG/DL eGFR (2020 CKD-EPI) (test code = 25238) 111 ML/MIN/1.73 CALC BUN/CREAT (test code = 2235) 14 RATIO SODIUM (test code = 2231) 136 MEQ/L POTASSIUM (test code = 2228) 4.2 MEQ/L CHLORIDE (test code = 2215) 99 MEQ/L CARBON DIOXIDE (test code = 2206) 21 MEQ/L CALCIUM (test code = 2209) 9.6 MG/DL PROTEIN, TOTAL (test code = 2229) 7.4 G/DL ALBUMIN (test code = 2201) 4.8 G/DL CALC GLOBULIN (test code = 2240) 2.6 G/DL CALC A/G RATIO (test code = 2234) 1.8 RATIO BILIRUBIN, TOTAL (test code = 2207) 1.2 MG/DL ALKALINE PHOSPHATASE (test code = 2204) 63 U/L AST (test code = 2218) 22 U/L ALT (test code = 2219) 37 U/L Jonny HeltonPSA, [id number] 00:00:00* Test Item Value Reference Range Interpretation Comme nts PSA, TOTAL (test code = 2606) 0.22 NG/ML Jonny [id number] 00:00:00* Test Item Value Reference Range Interpretation Comme nts TSH, THIRD GENERATION (test code = 2821) 1.380 UIU/ML Jonny HeltonCBC W/AUTO DIFF WITH [id number] 04:28:21* Test Item Value Reference Range Interpretation Comme nts WBC (test code = 1001) 4.0 K/UL 3.5-11.0 RBC (test code = 1002) 4.60 M/UL 4.50-6.10 HEMOGLOBIN (test code = 1003) 15.3 G/DL 13.5-17.0 HEMATOCRIT (test code = 1004) 43.7 % 40.0-51.0 MCV (test code = 1005) 95.0 fL 80.0-99.0 MCH (test code = 1006) 33.3 PG 25.0-33.0 H MCHC (test code = 1007) 35.0 G/DL 31.0-36.0 RDW (test code = 1038) 11.9 % 11.5-15.0 NEUTROPHILS (test code = 1008) 48.5 % LYMPHOCYTES (test code = 1010) 36.4 % MONOCYTES (test code = 1011) 6.7 % EOSINOPHILS (test code = 1012) 7.0 % BASOPHILS (test code = 1013) 1.2 % IMMATURE GRANULOCYTES (test code = 1036) 0.2 % NUCLEATED RBCS (test code = 1065) 0.0 /100 WBC'S See_Comment [Automated messa ge] The system which generated this result transmitted reference range: 0.0. The reference range was not used to interpret this result as normal/abnormal. PLATELET COUNT (test code = 1015) 178 K/UL 130-400 ABSOLUTE NEUTROPHILS (test code = 1066) 1.94 K/UL 1.50-7.50 ABSOLUTE LYMPHOCYTES (test code = 1067) 1.46 K/UL 1.00-4.00 ABSOLUTE MONOCYTES (test code = 1068) 0.27 K/UL 0.20-1.00 ABSOLUTE EOSINOPHILS (test code = 1040) 0.28 K/UL 0.00-0.50 ABSOLUTE BASOPHILS (test code = 1069) 0.05 K/UL 0.00-0.20 ABS IMMATURE GRANULOCYTES (test code = 1020) 0.01 K/UL 0.00-0.10 ABS NUCLEATED RBCS (test code = 45412) 0.00 K/UL 0.00-0.11 HEMOGLOBIN [id number] 04:17:23* Test Item Value Reference Range Interpretation Comme nts HEMOGLOBIN A1c (test code = 42915) 10.0 % 4.2-5.6 H [employer] GUIDELINES FOR HGB A1C: PREDIABETES/INCREASED RISK . . . . . . . 5.7-6.4% DIAGNOSIS OF DIABETES . . . . . . . . . >=6.5% WITH CONFIRMATION OR APPROPRIATE SYMPTOMS NOTE: ASSAY MAY BE AFFECTED BY HEMOGLOBINOPATHIES (SICKLE CELL ANEMIA, S-C DISEASE, OTHERS) OR ARTIFICIALLY LOWERED BY DECREASED RED CELL SURVIVAL (HEMOLYTIC ANEMIAS, BLOOD LOSS, ETC.). CONSIDER ALTERNATE TESTING OR LABORATORY CONSULTATION. CBC W/AUTO [id number] 00:00:00* Test Item Value Reference Range Interpretation Comme nts WBC (test code = 1001) 4.0 K/UL RBC (test code = 1002) 4.60 M/UL HEMOGLOBIN (test code = 1003) 15.3 G/DL HEMATOCRIT (test code = 1004) 43.7 % MCV (test code = 1005) 95.0 fL MCH (test code = 1006) 33.3 PG MCHC (test code = 1007) 35.0 G/DL RDW (test code = 1038) 11.9 % NEUTROPHILS (test code = 1008) 48.5 % LYMPHOCYTES (test code = 1010) 36.4 % MONOCYTES (test code = 1011) 6.7 % EOSINOPHILS (test code = 1012) 7.0 % BASOPHILS (test code = 1013) 1.2 % IMMATURE GRANULOCYTES (test code = 1036) 0.2 % NUCLEATED RBCS (test code = 1065) 0.0 /100WBC'S PLATELET COUNT (test code = 1015) 178 K/UL ABSOLUTE NEUTROPHILS (test c ode = 1066) 1.94 K/UL ABSOLUTE LYMPHOCYTES (test c ode = 1067) 1.46 K/UL ABSOLUTE MONOCYTES (test cod e = 1068) 0.27 K/UL ABSOLUTE EOSINOPHILS (test c ode = 1040) 0.28 K/UL ABSOLUTE BASOPHILS (test cod e = 1069) 0.05 K/UL ABS IMMATURE GRANULOCYTES (t est code = 1020) 0.01 K/UL ABS NUCLEATED RBCS (test cod e = 80021) 0.00 K/UL Jonny HeltonHEMOGLOBIN [id number] 00:00:00* Test Item Value Reference Range Interpretation Comme nts HEMOGLOBIN A1c (test code = 06586) 10.0 % Jonny HeltonCBC W/AUTO [id number] 00:00:00* Test Item Value Reference Range Interpretation Comme nts WBC (test code = 1001) 4.0 K/UL RBC (test code = 1002) 4.60 M/UL HEMOGLOBIN (test code = 1003) 15.3 G/DL HEMATOCRIT (test code = 1004) 43.7 % MCV (test code = 1005) 95.0 fL MCH (test code = 1006) 33.3 PG MCHC (test code = 1007) 35.0 G/DL RDW (test code = 1038) 11.9 % NEUTROPHILS (test code = 1008) 48.5 % LYMPHOCYTES (test code = 1010) 36.4 % MONOCYTES (test code = 1011) 6.7 % EOSINOPHILS (test code = 1012) 7.0 % BASOPHILS (test code = 1013) 1.2 % IMMATURE GRANULOCYTES (test code = 1036) 0.2 % NUCLEATED RBCS (test code = 1065) 0.0 /100WBC'S PLATELET COUNT (test code = 1015) 178 K/UL ABSOLUTE NEUTROPHILS (test c ode = 1066) 1.94 K/UL ABSOLUTE LYMPHOCYTES (test c ode = 1067) 1.46 K/UL ABSOLUTE MONOCYTES (test cod e = 1068) 0.27 K/UL ABSOLUTE EOSINOPHILS (test c ode = 1040) 0.28 K/UL ABSOLUTE BASOPHILS (test cod e = 1069) 0.05 K/UL ABS IMMATURE GRANULOCYTES (t est code = 1020) 0.01 K/UL ABS NUCLEATED RBCS (test cod e = 41023) 0.00 K/UL Jonny Rust AustinHEMOGLOBIN [id number] 00:00:00* Test Item Value Reference Range Interpretation Comme nts HEMOGLOBIN A1c (test code = 73872) 10.0 % Jonny Rust AustinCBC W/AUTO [id number] 00:00:00* Test Item Value Reference Range Interpretation Comme nts WBC (test code = 1001) 4.0 K/UL RBC (test code = 1002) 4.60 M/UL HEMOGLOBIN (test code = 1003) 15.3 G/DL HEMATOCRIT (test code = 1004) 43.7 % MCV (test code = 1005) 95.0 fL MCH (test code = 1006) 33.3 PG MCHC (test code = 1007) 35.0 G/DL RDW (test code = 1038) 11.9 % NEUTROPHILS (test code = 1008) 48.5 % LYMPHOCYTES (test code = 1010) 36.4 % MONOCYTES (test code = 1011) 6.7 % EOSINOPHILS (test code = 1012) 7.0 % BASOPHILS (test code = 1013) 1.2 % IMMATURE GRANULOCYTES (test code = 1036) 0.2 % NUCLEATED RBCS (test code = 1065) 0.0 /100WBC'S PLATELET COUNT (test code = 1015) 178 K/UL ABSOLUTE NEUTROPHILS (test c ode = 1066) 1.94 K/UL ABSOLUTE LYMPHOCYTES (test c ode = 1067) 1.46 K/UL ABSOLUTE MONOCYTES (test cod e = 1068) 0.27 K/UL ABSOLUTE EOSINOPHILS (test c ode = 1040) 0.28 K/UL ABSOLUTE BASOPHILS (test cod e = 1069) 0.05 K/UL ABS IMMATURE GRANULOCYTES (t est code = 1020) 0.01 K/UL ABS NUCLEATED RBCS (test cod e = 06809) 0.00 K/UL Jonny Rust AustinHEMOGLOBIN [id number] 00:00:00* Test Item Value Reference Range Interpretation Comme nts HEMOGLOBIN A1c (test code = 55507) 10.0 % Jonny Rust AustinCBC W/AUTO [id number] 00:00:00* Test Item Value Reference Range Interpretation Comme nts WBC (test code = 1001) 4.0 K/UL RBC (test code = 1002) 4.60 M/UL HEMOGLOBIN (test code = 1003) 15.3 G/DL HEMATOCRIT (test code = 1004) 43.7 % MCV (test code = 1005) 95.0 fL MCH (test code = 1006) 33.3 PG MCHC (test code = 1007) 35.0 G/DL RDW (test code = 1038) 11.9 % NEUTROPHILS (test code = 1008) 48.5 % LYMPHOCYTES (test code = 1010) 36.4 % MONOCYTES (test code = 1011) 6.7 % EOSINOPHILS (test code = 1012) 7.0 % BASOPHILS (test code = 1013) 1.2 % IMMATURE GRANULOCYTES (test code = 1036) 0.2 % NUCLEATED RBCS (test code = 1065) 0.0 /100WBC'S PLATELET COUNT (test code = 1015) 178 K/UL ABSOLUTE NEUTROPHILS (test c ode = 1066) 1.94 K/UL ABSOLUTE LYMPHOCYTES (test c ode = 1067) 1.46 K/UL ABSOLUTE MONOCYTES (test cod e = 1068) 0.27 K/UL ABSOLUTE EOSINOPHILS (test c ode = 1040) 0.28 K/UL ABSOLUTE BASOPHILS (test cod e = 1069) 0.05 K/UL ABS IMMATURE GRANULOCYTES (t est code = 1020) 0.01 K/UL ABS NUCLEATED RBCS (test cod e = 03235) 0.00 K/UL Jonny HeltonHEMOGLOBIN [id number] 00:00:00* Test Item Value Reference Range Interpretation Comme nts HEMOGLOBIN A1c (test code = 73633) 10.0 % Jonny HeltonCBC W/AUTO [id number] 00:00:00* Test Item Value Reference Range Interpretation Comme nts WBC (test code = 1001) 4.0 K/UL RBC (test code = 1002) 4.60 M/UL HEMOGLOBIN (test code = 1003) 15.3 G/DL HEMATOCRIT (test code = 1004) 43.7 % MCV (test code = 1005) 95.0 fL MCH (test code = 1006) 33.3 PG MCHC (test code = 1007) 35.0 G/DL RDW (test code = 1038) 11.9 % NEUTROPHILS (test code = 1008) 48.5 % LYMPHOCYTES (test code = 1010) 36.4 % MONOCYTES (test code = 1011) 6.7 % EOSINOPHILS (test code = 1012) 7.0 % BASOPHILS (test code = 1013) 1.2 % IMMATURE GRANULOCYTES (test code = 1036) 0.2 % NUCLEATED RBCS (test code = 1065) 0.0 /100WBC'S PLATELET COUNT (test code = 1015) 178 K/UL ABSOLUTE NEUTROPHILS (test c ode = 1066) 1.94 K/UL ABSOLUTE LYMPHOCYTES (test c ode = 1067) 1.46 K/UL ABSOLUTE MONOCYTES (test cod e = 1068) 0.27 K/UL ABSOLUTE EOSINOPHILS (test c ode = 1040) 0.28 K/UL ABSOLUTE BASOPHILS (test cod e = 1069) 0.05 K/UL ABS IMMATURE GRANULOCYTES (t est code = 1020) 0.01 K/UL ABS NUCLEATED RBCS (test cod e = 12005) 0.00 K/UL Jonny HeltonHEMOGLOBIN [id number] 00:00:00* Test Item Value Reference Range Interpretation Comme nts HEMOGLOBIN A1c (test code = 15669) 10.0 % Jonny Yocasta Danie Notes Date/Time Note [facility]2024-12-24 08:07:47 Chief Complaint Patient presents with Ear Problem Having trouble hearing for a month Zenaida Grewal LVN [facility]2024-12-13 00:00:00 Jonny Marte [facility]2024-09-13 00:00:00 Jonny Marte [facility]2024-07-12 00:00:00 Jonny Kristie [facility]2024-06-21 00:00:00 [facility]ny [facility]
[2024-06-21] MEDS ORDERED: ONDANSETRON 4 MG/2 ML VIAL ONE (18:24)
[2024-06-21] MEDS ORDERED: MORPHINE 4 MG/ML SYR ONE (18:24)
[2024-06-21 18:47] LABS: Absolute Eosinophils 0.1 K/uL (0-0.5); Absolute Lymphocytes (CBC) 1.6 K/uL (0.7-4.9); Absolute Monocytes 0.7 K/uL (0.1-1.3); Absolute Neutrophil 8.9 K/uL (1.8-8.0); Basophils % 0.3 % (0-1.3); Eosinophils % 1.1 % (0-4.4); Hematocrit 35.5 % (39.6-49.0); Hemoglobin 12.6 g/dL (13.6-17.9); Lymphocytes % 14.4 % (15.3-44.8); MCH 32.9 pg (27.0-35.0); MCHC 35.5 g/dL (32.0-36.0); MCV 92.8 fL (80-100); MPV 7.9 fL (7.6-11.3); Monocytes % 5.8 % (3.3-12.3); Neutrophils % 78.4 % (41.7-73.7); Nucleated Red Blood Cells % 0.1 % (0-0); Platelets 220 thou/uL (152-406); RBC Red Blood Cell Count 3.83 M/uL (4.33-5.43); Red Cell Distribution Width 11.9 % (12.1-15.2)
[2024-06-21 18:56] LABS: Anion Gap 13.8 mEq/L (5.0-15.0); Potassium 3.8 mEq/L (3.5-5.1)
--- NOTE | 2024-06-21 19:26 | RAD REPORT ---
EXAM: CT brain without contrast HISTORY: TRAUMA COMPARISON: None TECHNIQUE: Multiple contiguous axial images were obtained and a CT of the brain without contrast. Sag ittal and coronal reformats were performed. One or more of the following dose reduction techniques were used: Automated exposure control, adjust ment of the mA and/or kV according to patient size, and/or iterative reconstruction. FINDINGS: No evidence of hydrocephalus, intracranial hemorrhage, or extra-axial fluid collection. The brain is normal in morphology. No evidence of midline shift or areas of brain edema. The calvarium is intact. Advanced paranasal sinus opacification is present. IMPRESSION: No evidence of acute intracranial abnormality. EXAM: CT of the cervical spine without contrast HISTORY: Neck pain, injury TRAUMA TECHNIQUE: Multiple contiguous axial images were obtained in a CT of the cervical spine without contr ast. Sagittal and coronal reformats were performed. FINDINGS: The vertebral bodies demonstrate normal height and alignment. No evidence of acute fracture or subluxation.. Mild lower cervical spondylosis. No prevertebral soft tissue swelling is seen. The posterior facets are well aligned. Normal alignment of the skull base with the cervical spine is seen. Trace fascial air on the right. Intrathoracic findings separately reported. IMPRESSION: No evidence of acute osseous abnormality of the cervical spine.
--- NOTE | 2024-06-21 19:34 | RAD REPORT ---
EXAM: CT CHEST, ABDOMEN AND PELVIS WITH CONTRAST CLINICAL INDICATION: TRAUMA TECHNIQUE: CT chest, abdomen and pelvis was performed, following the administration of contrast, as p er department protocol. Axial, sagittal and coronal reconstructions were obtained. One or more of the following dose reduction techniques were used: Automated exposure control, adjustment of the mA a nd/or kV according to patient size, and/or iterative reconstruction. Unless otherwise specified, incidental findings do not require dedicated imaging follow-up. COMPARISON: No prior exam. FINDINGS: LUNGS: Patchy airspace opacities are peripherally oriented involving the right lung greatest in the r ight lower lobe which could be pulmonary contusion. PLEURA: There is a small right pneumothorax estimated at 10% lung volume. There is also mild right pl eural fluid suggesting hemothorax. MEDIASTINUM AND LYMPH NODES: No mediastinal mass or fluid collection. Normal size mediastinal, hilar, and axillary lymph nodes. OSSEOUS STRUCTURES AND CHEST WALL: There is a mildly displaced fracture posterior medial 12th rib fra cture. Right first, second, third, fourth, fifth, sixth, seventh rib. Lateral right second, third, fourth, fifth, sixth, seventh, rib fracture. Several of these lateral rib fractures are significantly displaced. Posterior right 12th rib fracture. LIVER: The liver demonstrates mild fatty infiltration. No focal lesion or biliary dilatation is seen. Grossly unremarkable gallbladder. PANCREAS: No mass, ductal dilation, or dora-pancreatic fluid. SPLEEN: Normal size. No focal lesion. ADRENALS: Normal; no mass. KIDNEYS: Normal size and contour. No hydronephrosis. URINARY BLADDER: Normal contour. GASTROINTESTINAL TRACT: No bowel obstruction, free air, significant free fluid or abscess. APPENDIX: Normal appendix. LYMPH NODES: No lymphadenopathy. MUSCULOSKELETAL: Right lateral transverse process L1, L2, L3 are fractured. There is mildly comminute d fracture of the right iliac wing extending to the anterior aspect of the right acetabulum. There is fracture inferior left and superior left pubic ramus. Fracture of the left superior sacral alar is present OTHER: Small left pelvic hematoma. Significant right gluteal and 6 iliopsoas muscle enlargement.. IMPRESSION: Mild right pneumothorax probably 10% of lung volume. Small right hemothorax associated with this. Multiple rib fractures on the right most of which are compound, right flail chest likely. Right pulmonary contusions suspected. Multiple pelvic and sacral fractures as well as lower lumbar transverse process fractures as detailed above.
[2024-06-21] MEDS ORDERED: KETAMINE HCL IN 0.9 % NACL 50 MG/5 ML SYRINGE IV ONE (20:09)
[2024-06-21] MEDS ORDERED: LIDOCAINE 1% 20 ML MDV ONE (20:09)
--- NOTE | 2024-06-21 20:16 | RAD REPORT ---
EXAMINATION: XR RIGHT WRIST CLINICAL INDICATION: PAIN RIGHT TECHNIQUE: Multiple projections of the right wrist were obtained. COMPARISON: No prior exam. FINDINGS: Intra-articular distal radius fracture is present. Tiny ulnar styloid avulsion fracture li lola present. No dislocation seen.
--- NOTE | 2024-06-21 20:52 | ER ---
Nurse's Notes [facility] Name: Aung Rock Age: 54 yrs Sex: Male : 1970 Arrival Date: 06/21/2024 Time: 17:43 Bed 3 Private MD: Diagnosis: Traumatic Hemothorax, Traumatic Pneumothorax, Multiple R sided Rib fractures, Pelvic Fractrues, Sacral Fractures Presentation: 06/21 17:51 Chief complaint: EMS states: 10-12 FOOT FALL FROM TREE, NO LOC, R FLANK PAIN. Care bp prior to arrival: None. Mechanism of Injury: Fall TREE approximately 12 feet. Trauma event details: Injury occurred in the [facility], Injury occurred: at home. Injury occurred: June 21, 2024 Injury occurred at: 17:30. 17:51 Acuity: SMIRAN 2 bp 17:51 Method Of Arrival: EMS: [facility] bp 19:18 Coronavirus screen: At this time, the client does not indicate any symptoms associated al5 with coronavirus-19. Ebola Screen: No symptoms or risks identified at this time. Initial Sepsis Screen: Does the patient meet any 2 criteria? No. Patient's initial sepsis screen is negative. Does the patient have a suspected source of infection? No. Patient's initial sepsis screen is negative. Risk Assessment: Do you want to hurt yourself or someone else? Patient reports no desire to harm self or others. Triage Assessment: 17:57 General: Appears distressed, uncomfortable, Behavior is cooperative, appropriate for bp age, anxious. Pain: Complains of pain in right flank. EENT: No deficits noted. Neuro: No deficits noted. Cardiovascular: No deficits noted. Respiratory: No deficits noted. GI: No signs and/or symptoms were reported involving the gastrointestinal system. : No signs and/or symptoms were reported regarding the genitourinary system. Derm: No deficits noted. Musculoskeletal: No deficits noted. Historical: - Allergies: 17:57 No Known Allergies; bp - Home Meds: 17:57 Metformin Oral [Active]; bp - PMHx: 17:57 Diabetes mellitus; bp - Immunization history:: Adult Immunizations up to date. - Infectious Disease History:: Denies. - Social history:: Smoking status: Patient denies any tobacco usage or history of. - Family history:: not pertinent. Screenin:52 Abuse screen: Denies threats or abuse. Denies injuries from another. Tuberculosis bp screening: No symptoms or risk factors identified. 19:18 [facility] ED Fall Risk Assessment (Adult) History of falling in the last 3 months, al5 including since admission Yes- single mechanical fall (1 pt) Confusion or Disorientation No (0 pts) Intoxicated or Sedated No (0 pts) Impaired Gait Yes (1 pt) Mobility Assist Device Used Yes (1 pt) Altered Elimination No (0 pt) Score/Fall Risk Level 3 or more points = High Risk Oriented to surroundings, Maintained a safe environment, Hourly rounding (assess needs \T\ fall precautionary measures) done. Nutritional screening: No deficits noted. Primary Survey: 17:52 NO uncontrolled hemorrhage observed. A: The client is alert. Airway: patent. bp Breathing/Chest: Respiratory effort: spontaneous. Circulation: No external hemorrhage present. Regular and strong central pulse, skin warm/dry/normal color. Disability Client is alert. Exposure/Environment: All clothing and personal items were removed. Forensic evidence collection is not deemed to be indicated at this time. Items placed in patient belonging bag. There is no evidence of uncontrolled external bleeding. Obvious injury(ies) are noted at this time: R RIB PAIN. Assessment: 19:17 General: Appears in no apparent distress. uncomfortable, Behavior is calm, cooperative. al5 Pain: Complains of pain in pelvis and back Pain currently is 8 out of 10 on a pain scale. Neuro: Level of Consciousness is awake, alert, obeys commands, Oriented to person, place, time, situation. Cardiovascular: Capillary refill < 3 seconds Patient's skin is warm and dry. Respiratory: Airway is patent Respiratory effort is even, unlabored, Respiratory pattern is regular, symmetrical. GI: No signs and/or symptoms were reported involving the gastrointestinal system. : No signs and/or symptoms were reported regarding the genitourinary system. EENT: No signs and/or symptoms were reported regarding the EENT system. Derm: Skin is intact, is healthy with good turgor, Skin is normal. Musculoskeletal: Reports pain in pelvis and back Pain is 8 out of 10 on a pain scale. Vital Signs: 17:55 BP 128 / 71; Pulse 89; Resp 20; Pulse Ox 92% ; bp 19:17 BP 120 / 69; Pulse 88; Resp 16; Pulse Ox 96% on R/A; al5 20:52 BP 120 / 77; Pulse 92; Resp 19; Pulse Ox 100% on 15 lpm Non-rebreather mask; dd2 21:00 BP 111 / 76; Pulse 96; Resp 18; Pulse Ox 100% on Non-rebreather mask; dd2 21:15 BP 119 / 76; Pulse 97; Resp 19; Pulse Ox 100% on 15 lpm Non-rebreather mask; dd2 21:45 BP 98 / 58; Pulse 90; Resp 18; Pulse Ox 100% on 2 lpm NC; dd2 22:00 BP 104 / 68; Pulse 91; Resp 17; Pulse Ox 100% on 2 lpm NC; dd2 [place] Coma Score: 17:52 Eye Response: spontaneous(4). Motor Response: obeys commands(6). Verbal Response: bp oriented(5). Total: 15. Trauma Score (Adult): 17:52 Eye Response: spontaneous(1); Verbal Response: oriented(1); Motor Response: obeys bp commands(2); Systolic BP: > 89 mm Hg(4); Respiratory Rate: 10 to 29 per min(4); [place] Score: 15; Trauma Score: 12 ED Course: 17:46 Patient arrived in ED. ph 17:48 Suman Mcclellan, RN is Primary Nurse. bp 17:52 Triage completed. bp 17:52 Patient has correct armband on for positive identification. bp 17:52 Oxygen administration via nasal cannula \T\ 2L/min. bp 17:56 Nilay Mcfarland MD is Attending Physician. rt 17:57 Arm band placed on. bp 18:30 Inserted saline lock: 20 gauge in left antecubital area, using aseptic technique. Blood rk3 collected. Flushed with 10 mL NS. 18:38 Basic Metabolic Panel Sent. rk3 18:38 CBC with Diff Sent. rk3 18:38 Type And Screen Sent. rk3 19:13 CT Head C Spine In Process Unspecified. EDMS 19:13 CT Chest, Abdomen, Pelvis - W/Contrast In Process Unspecified. EDMS 19:41 Attending Physician role handed off by Nilay Mcfarland MD ec2 19:41 Simon Hendrickson MD is Attending Physician. ec2 20:00 Wrist Right 3 View XRAY In Process Unspecified. EDMS 20:58 Client placed on continuous cardiac and pulse oximetry monitoring. NIBP monitoring dd2 applied. child monitor on. Noise minimized. Warm blanket given. Verbal reassurance given. 20:58 Assist provider with chest tube insertion with 20 Fr. in right lateral chest wall. Tray dd2 was set up. Attached to pleur-e-vac. Chest tube inserted by Simon Hendrickson MD Placement verified by fluctuation of fluid, return of blood, Dressed with Vaseline gauze, foam tape, 4X4s, Patient tolerated well. Chest tube maintenance: Connected to pleur-e-vac. Fluctuates with respirations. Site clean \T\ dry. Oxygen administration via non-rebreather mask \T\ 15L/min. 21:11 CXR XRAY In Process Unspecified. EDMS 21:53 REPORT CALLED TO SWEETIE AT [facility] ER. cm10 22:03 Provided Education on: TRANSFER TO [facility]. dd2 22:03 Patient transferred, IV remains in place. Orthoglass splint: Sugar tong splint applied dd2 on right arm. Sling applied to right arm. 06/22 06:[address] [facility] spoke with Tati Bailey, patient was accepted to Dr. Pritchard \T\ 2100 to ER admin approval Tati Bailey \T\ 2052, initiated transport with EMS spoke with homero arora 10-15 mins for transport. Administered Medications: 06/21 18:15 Drug: morphine IVP or IV 4 mg IVP once over 4 mins Route: IVP; Infused Over: 4 mins; bp Site: left antecubital; 18:15 Drug: Ondansetron IVP 4 mg IVP once; over 2 minutes Route: IVP; Site: left antecubital; bp 20:20 Drug: Ketamine IVP 25 mg IVP once Route: IVP; Site: left antecubital; dd2 20:35 Follow up: Response: No adverse reaction dd2 20:20 Drug: Lidocaine Infiltration (1 %) 20 ml 20 ml Infiltration once; to bedside {Note: dd2 ADMINISTERED BY DR. HENDRICKSON.} Volume: 20 ml; Route: Infiltration; Site: affected area; 20:55 Follow up: Response: No adverse reaction dd2 Medication: 19:18 VIS not applicable for this client. al5 Outcome: 20:51 ER care complete, transfer ordered by . ec2 22:35 Transferred by ground EMS to [facility], Transfer form completed. dd2 22:35 Condition: stable 22:35 Instructed on the need for transfer, Demonstrated understanding of instructions, 22:36 Patient left the ED. dd2 Signatures: Dispatcher [employer] EDAnai Sinclair RN Suman Yeh ph RN RN Nilay Gross MD MD rt Veronika Cortes RN RN cm10 Simon Hendrickson MD MD ec2 Kylee Jones Amanda, RN RN al5 GISELE BENITEZ RN RN dd2 Odilia Greenberg rk3 Corrections: (The following items were deleted from the chart) 19:46 19:44 General: Appears in no apparent distress. uncomfortable, Behavior is calm, al5 cooperative, al5 19:46 19:44 Neuro: Level of Consciousness is awake, alert, obeys commands, Oriented to al5 person, place, time, situation, al5 19:46 19:44 Cardiovascular: Capillary refill < 3 seconds Patient's skin is warm and dry. al5 al5 19:46 19:44 Respiratory: Airway is patent Respiratory effort is even, unlabored, Respiratory al5 pattern is regular, symmetrical, al5 19:46 19:44 GI: No signs and/or symptoms were reported involving the gastrointestinal system. al5 al5 19:46 19:44 : No signs and/or symptoms were reported regarding the genitourinary system. al5al5 19:46 19:44 EENT: No signs and/or symptoms were reported regarding the EENT system. al5 al5 19:46 19:44 Derm: Skin is intact, is healthy with good turgor, Skin is normal, al5 al5 19:46 19:44 Musculoskeletal: Reports pain in pelvis and back Pain is 8 out of 10 on a pain al5 scale. al5 19:46 19:44 Pain: Complains of pain in pelvis and back Pain currently is 8 out of 10 on a al5 pain scale. al5
--- NOTE | 2024-06-21 20:52 | EDPHYS ---
Physician Documentation [facility] Name: Aung Rock Age: 54 yrs Sex: Male : 1970 Arrival Date: 06/21/2024 Time: 17:43 Bed 3 Private MD: ED Physician Simon Hendrickson HPI: 06/21 19:26 This 54 yrs old Male presents to ER via EMS with complaints of Fall Injury. rt 19:26 Patient presents to the ED with fall from a ladder while up in a tree, reportedly his rt feet were at a wrong about 10 feet off the ground. He landed onto his right side. Reports of pain to the ribs, pelvis, right wrist. Denies hitting his head, loss of consciousness. Denies other acute complaints at this time, symptoms are moderate severity, no other aggravating or alleviating factors.. Historical: - Allergies: 17:57 No Known Allergies; bp - Home Meds: 17:57 Metformin Oral [Active]; bp - PMHx: 17:57 Diabetes mellitus; bp - Immunization history:: Adult Immunizations up to date. - Infectious Disease History:: Denies. - Social history:: Smoking status: Patient denies any tobacco usage or history of. - Family history:: not pertinent. ROS: 19:26 Constitutional: Negative for fever, chills, and weight loss, Neck: Negative for injury, rt pain, and swelling, Respiratory: Negative for shortness of breath, cough, wheezing, and pleuritic chest pain, Abdomen/GI: Negative for abdominal pain, nausea, vomiting, diarrhea, and constipation, Skin: Negative for injury, rash, and discoloration, Neuro: Negative for headache, weakness, numbness, tingling, and seizure, 19:26 Cardiovascular: Positive for chest pain, Negative for edema, Exam: 19:26 Constitutional: This is a well developed, well nourished patient who is awake, alert, rt and in no acute distress. Cardiovascular: Regular rate and rhythm with a normal S1 and S2. No gallops, murmurs, or rubs. Normal PMI, no JVD. No pulse deficits. Respiratory: Lungs have equal breath sounds bilaterally, clear to auscultation and percussion. No rales, rhonchi or wheezes noted. No increased work of breathing, no retractions or nasal flaring. Abdomen/GI: Soft, non-tender, with normal bowel sounds. No distension or tympany. No guarding or rebound. No evidence of tenderness throughout. Back: No spinal tenderness. No costovertebral tenderness. Full range of motion. Neuro: Awake and alert, GCS 15, oriented to person, place, time, and situation. Cranial nerves II-XII grossly intact. Motor strength 5/5 in all extremities. Sensory grossly intact. Cerebellar exam normal. Normal gait. Psych: Awake, alert, with orientation to person, place and time. Behavior, mood, and affect are within normal limits. 19:26 Neck: No posterior cervical midline, 19:26 Chest/axilla: Tenderness to the right lateral chest wall, no crepitus felt. Vital Signs: 17:55 BP 128 / 71; Pulse 89; Resp 20; Pulse Ox 92% ; bp 19:17 BP 120 / 69; Pulse 88; Resp 16; Pulse Ox 96% on R/A; al5 20:52 BP 120 / 77; Pulse 92; Resp 19; Pulse Ox 100% on 15 lpm Non-rebreather mask; dd2 21:00 BP 111 / 76; Pulse 96; Resp 18; Pulse Ox 100% on Non-rebreather mask; dd2 21:15 BP 119 / 76; Pulse 97; Resp 19; Pulse Ox 100% on 15 lpm Non-rebreather mask; dd2 21:45 BP 98 / 58; Pulse 90; Resp 18; Pulse Ox 100% on 2 lpm NC; dd2 22:00 BP 104 / 68; Pulse 91; Resp 17; Pulse Ox 100% on 2 lpm NC; dd2 [place] Coma Score: 17:52 Eye Response: spontaneous(4). Motor Response: obeys commands(6). Verbal Response: bp oriented(5). Total: 15. Trauma Score (Adult): 17:52 Eye Response: spontaneous(1); Verbal Response: oriented(1); Motor Response: obeys bp commands(2); Systolic BP: > 89 mm Hg(4); Respiratory Rate: 10 to 29 per min(4); [place] Score: 15; Trauma Score: 12 Procedures: 20:53 Chest tube insertion: the site was prepped using Betadine, in sterile fashion, Tube ec2 size: a 20 georgian chest tube was inserted, introduced in right lateral to pleur-e-vac, dressed with vaseline gauze, foam tape, 4x4s, the patient tolerated the procedure well. MDM: 17:56 Medical Screening Exam initiated rt 19:42 Data reviewed: vital signs, nurses notes. ED course: Patient signed out to me by [facility] previous physician, in brief arrives today after a fall from an elevated surface. Patient had CT imaging that showed significant injury including a small right-sided pneumothorax along with hemothorax, multiple sided rib fractures on the right side with pulmonary contusions as well as multiple pelvic and sacral fractures. Will place chest tube in the patient. Patient updated regarding plan of care and agreeable and consents to chest tube for emergent process. Will transfer to trauma capable facility.. 20:53 ED course: I performed a right-sided chest tube insertion without issue. Had blood ec2 return as well as air return, hooked up to suction. 20:53 ED course: Patient tolerated well without issue. ec2 21:04 ED course: I discussed the case with trauma surgery Dr. Pritchard at [place] [id number] who agrees accept the patient for transfer. Will send via EMS ground, patient has been stable here with appropriate hemodynamics I feel he is appropriate at this time.. 21:27 ED course: Chest x-ray independently reviewed and interpreted by me, shows superior ec2 medial placement of the chest tube with some coiling. There is appropriate bubbling and blood return, will not retract. 06/21 18:04 Order name: Basic Metabolic Panel; Complete Time: 19:22 rt 06/21 18:04 Order name: CBC with Diff; Complete Time: 19:22 rt 06/21 18:04 Order name: Type And Screen; Complete Time: 19:22 rt 06/21 18:04 Order name: CT Head C Spine; Complete Time: 19:31 rt 06/21 18:04 Order name: CT Chest, Abdomen, Pelvis - W/Contrast; Complete Time: 19:55 rt 06/21 19:25 Order name: Wrist Right 3 View XRAY; Complete Time: 20:49 rt 06/21 20:59 Order name: CXR XRAY; Complete Time: 21:27 ec2 06/21 18:04 Order name: Labs collected and sent; Complete Time: 18:38 rt 06/21 19:43 Order name: Chest Tube Setup; Complete Time: 20:54 ec2 03/15 21:55 Order name: Splint - Sugar Tong - Forearm; Complete Time: 22:03 ec2 Administered Medications: 18:15 Drug: morphine IVP or IV 4 mg IVP once over 4 mins Route: IVP; Infused Over: 4 mins; bp Site: left antecubital; 18:15 Drug: Ondansetron IVP 4 mg IVP once; over 2 minutes Route: IVP; Site: left antecubital; bp 20:20 Drug: Ketamine IVP 25 mg IVP once Route: IVP; Site: left antecubital; dd2 20:35 Follow up: Response: No adverse reaction dd2 20:20 Drug: Lidocaine Infiltration (1 %) 20 ml 20 ml Infiltration once; to bedside {Note: dd2 ADMINISTERED BY DR. HENDRICKSON.} Volume: 20 ml; Route: Infiltration; Site: affected area; 20:55 Follow up: Response: No adverse reaction dd2 Disposition Summary: 06/21/24 20:51 Transfer Ordered Notes: Transfer Location: [facility] ec2 Reason: Higher level of care ec2 Condition: Stable ec2 Problem: new ec2 Symptoms: have improved ec2 Accepting Physician: transfer doc(06/21/24 22:36) dd2 Diagnosis - Traumatic Hemothorax, Traumatic Pneumothorax, Multiple R sided Rib fractures, ec2 Pelvic Fractrues, Sacral Fractures Forms: - Medication Reconciliation Form ec2 - SBAR form ec2 Critical care time excluding procedures: 20:50 Critical care time: Bedside Care: 30 minutes, Consultation: 5 minutes. Total time: 35 ec2 minutes Signatures: Dispatcher [employer] Suman Guidry, RN RN bp Nilay Mcfarland MD MD rt Simon Hendrickson MD MD ec2 GISELE BENITEZ RN RN dd2 Corrections: (The following items were deleted from the chart) 20:59 20:59 Chest Single View+RAD.RAD.[email or web address] ordered. EYADAL MARYAM 22:36 20:51 transfer doc ec2 dd2
--- NOTE | 2024-06-21 21:14 | RAD REPORT ---
EXAMINATION: ONE VIEW CHEST XR CLINICAL INDICATION: POST CHEST TUBE TECHNIQUE: Frontal chest projection is submitted. Examination is limited by patient positioning and t echnique. COMPARISON: 06/21/2024 FINDINGS: Right-sided chest tube has been placed directed cephalad. No measurable pneumothorax. Hazy opacity in volving the right lung may represent pulmonary edema or contusion. Multiple displaced right-sided rib fractures. The left lung is grossly clear. The heart is normal in size.
[2024-06-22 00:13] VITALS: O2SAT 100
[2024-06-22 00:19] VITALS: BP 104/68
== END 2024-06-21 22:36 | disposition short-term general hospital (02) ==
LOC: ER 17:43
DX: S27.2XXA Traumatic hemopneumothorax, initial encounter (principal); S22.41XA Multiple fractures of ribs, right side, initial encounter for closed fracture; S32.9XXA Fracture of unspecified parts of lumbosacral spine and pelvis, initial encounter for closed fracture; S32.10XA Unspecified fracture of sacrum, initial encounter for closed fracture; W11.XXXA Fall on and from ladder, initial encounter; E11.9 Type 2 diabetes mellitus without complications
CPT/HCPCS: 85025; 80048; 36415; 86900; 86850; 86901; 70450; 72125; 71260; 74177; 71045; 73110; 96375; 96374; 99285; 32551; Q9967; J2003; J2405